=== PATIENT | female | born 1935 | race Caucasian/White ===

== ENCOUNTER 2016-08-10 11:46 | Inpatient (IN) | payer OTHER, MEDICARE ==
[2016-08-10] VITALS (7 sets, daily range): BP systolic 110–139; BP diastolic 50–74; PULSE 72–95; RESP 18–23; TEMP 97.8–98; O2SAT 91–94
[~2016-08-10] VITALS: Ht 152.4 cm; Wt 83.5 kg
[~2016-08-10 11:46] MED LIST: ADVAI500I INH; ALEN70TA39 PO; ASPI325T PO; BUME2TAB PO; CITA20TA4 PO; CLOP75 PO; DUONI NEB; FAMO20TA2 PO; HYDR-3535 PO; IPRAAER INH; LORA-392 PO; LOSA25 PO; METF500 PO; METO25 PO; PRAV80 PO; ROPI1TAB72 PO; TEMA15CA PO
--- NOTE | 2016-08-10 11:57 | PD ---
HPI Chief Complaint: Weakness Time Seen by Provider: 11:57 Travel History International Travel<30 days: No Contact w/Intl Traveler<30days: No Traveled to known affect area: No History of Present Illness HPI 81-year-old female with history of diabetes requiring insulin, and CHF , presents the emergency department with generalized weakness, increased lower extremity edema and pain, and increased shortness of breath. Patient states her glucometer broke several weeks ago and she has not been taking her insulin for approximately 2 weeks. Patient denies fever or chills but has weeping from her skin of both lower extremities since yesterday. The left lower extremity is somewhat erythematous and warm today. Patient states decreased urine output and overall weakness and exertional dyspnea. Patient denies nausea, vomiting, or diarrhea. She denies urinary symptoms. Patient is on Lasix but cannot remember her dose. She has no known drug allergies. PFSH Past Medical History Arthritis: Yes Asthma: No Autoimmune Disease: No Anxiety: Yes Depression: Yes Heart Rhythm Problems: No Cancer: No Cardiac Catheterization: Yes Cardiovascular Problems: Yes (CHF, CABG) High Cholesterol: No Chemotherapy: No Chest Pain: Yes Congestive Heart Failure: Yes COPD: Yes Cerebrovascular Accident: No Coronary Artery Disease: Yes Diabetes: Yes Diminished Hearing: No Endocrine: Yes Gastrointestinal Disorders: Yes (CONSTIPATION) GERD: No Genitourinary: No Headaches: No Hepatitis: No Hiatal Hernia: No Hypertension: Yes Immune Disorder: No Implanted Vascular Access Dvce: No Kidney Stones: No Musculoskeletal: Yes (OSTEOPOROSIS, ARTHRITIS) Neurologic: Yes (NEUROPATHY FEET) Psychiatric: Yes (ANXIETY) Reproductive: No Respiratory: Yes (COPD, SLEEP APNEA/ NO CPAP) Migraines: No Radiation Therapy: No Renal Failure: No Seizures: No Sickle Cell Disease: No Sleep Apnea: Yes Thyroid Disease: No Ulcer: No Past Surgical History Abdominal Surgery: Yes (APPY) AICD: No Appendectomy: Yes Arteriovenous Shunt: No Cardiac Surgery: Yes (CABG (3)) Coronary Artery Bypass Graft: Yes (X3 IN 2013) Coronary Stent: Yes Ear Surgery: No Endocrine Surgery: No Eye Surgery: No Genitourinary Surgery: No Gynecologic Surgery: Yes (TAHBSO) Hysterectomy: Yes Insulin Pump: No Joint Replacement: No Neurologic Surgery: No Oral Surgery: Yes (T&A) Pacemaker: No Thoracic Surgery: No Tonsillectomy: Yes Other Surgery: Yes Social History Alcohol Use: No Tobacco Use: Yes (1 PPD) Substance Use: No Allergies-Medications (Allergen,Severity, Reaction): Coded Allergies: No Known Allergies (Verified , 10/30/15) Reported Meds & Prescriptions Reported Meds & Active Scripts Active Reported Temazepam 15 Mg Cap 15 Mg PO HS PRN Requip (Ropinirole) 1 Mg Tab 1 Mg PO TID Pravastatin 80 Mg Tab 80 Mg PO HS Metoprolol Tartrate 25 Mg Tab 25 Mg PO DAILY Metformin (Metformin HCl) 500 Mg Tab 500 Mg PO DAILY With a meal Losartan (Losartan Potassium) 25 Mg Tab 25 Mg PO DAILY Lorazepam 0.5 Mg Tab 0.5 Mg PO BID PRN Lortab (Hydrocodone-Acetaminophen) 10-325 Mg Tab 1 Tab PO 2-3 TIMES A DAY PRN Combivent Respimat Inh (Ipratropium-Albuterol Inh) 20-100 Longterm/Act Aero 1 Puff INH QID Celexa (Citalopram Hydrobromide) 20 Mg Tab 20 Mg PO DAILY Bumex (Bumetanide) 2 Mg Tab 2 Mg PO BID Aspirin 325 Mg Tab 325 Mg PO DAILY Fosamax (Alendronate Sodium) 70 Mg Tab 70 Mg PO WEEKLY Saturdays Duoneb (Ipratropium-Albuterol Neb) 0.5-2.5 Mg/3 Ml Neb 1 Ampule NEB QID Advair Diskus Inh (Fluticasone-Salmeterol Inh) 500-50 Mcg/Blist Aer 1 Puff INH BID Rinse mouth after use. Review of Systems Except as stated in HPI: all other systems reviewed are Neg General / Constitutional: No: Fever, Chills Eyes: No: Visual changes HENT: Positive: Lightheadedness, No: Headaches, Sore Throat, Rhinitis, Rhinorrhea, Congestion, Nosebleed, Neck Stiffness, Neck Pain, Ear Discharge, Earache Cardiovascular: No: Chest Pain or Discomfort, Palpitations, Irregular Rhythm, Tachycardia Respiratory: Positive: Shortness of Breath (with exertion.), No: Cough, Wheezing, Sneezing, Orthopnea, Hemoptysis, Stridor, Night Sweats, Pleuritic Pain Gastrointestinal: No: Nausea, Vomiting, Diarrhea, Abdominal Pain Genitourinary: Positive: Decreased Urinary Output, No: Urgency, Frequency, Dysuria Musculoskeletal: Positive: Edema (see history present illness), Pain Skin: Positive Lesions (see history of present illness), No Rash Neurologic: No: Weakness Psychiatric: No: Depression Endocrine: No: Polydipsia Hematologic/Lymphatic: No: Easy Bruising Physical Exam Narrative GENERAL: Patient appears in mild distress. SKIN: Warm and dry. Normal color. Decreased turgor with tenting noted. Lower extremities have tense 2+ pitting edema bilaterally to the knees. Patient has superficial blistering and skin breakdown to both shins. Left lower leg has increased warmth and erythema with tenderness present. HEAD: Atraumatic. Normocephalic. EYES: Pupils equal and round. No scleral icterus. No injection or drainage. ENT: No nasal bleeding or discharge. Mucous membranes pink and very dry. Pharynx is normal. Airway is patent. NECK: Trachea midline. No JVD. CARDIOVASCULAR: Regular rate and rhythm. No murmurs appreciated. RESPIRATORY: No accessory muscle use. No wheezes crackles rales or rhonchi to auscultation. Breath sounds equal bilaterally. GASTROINTESTINAL: Abdomen soft, non-tender, nondistended. Hepatic and splenic margins not palpable. MUSCULOSKELETAL: Extremities without clubbing, cyanosis, 2+ tender pitting edema bilaterally to lower extremities to the knee. No obvious deformities. NEUROLOGICAL: Awake and alert. No obvious cranial nerve deficits. Motor grossly within normal limits. Five out of 5 muscle strength in the arms and legs. Normal speech. Patient is able to ambulate. PSYCHIATRIC: Appropriate mood and affect; insight and judgment normal. Data Data Last Documented VS Vital Signs Date Time Temp Pulse Resp B/P Pulse Ox O2 Delivery O2 Flow Rate FiO2 08/10/16 12:43 94 Nasal Cannula 4 08/10/16 11:50 97.8 Orders Complete Blood Count With Diff (08/10/16 12:15) Comprehensive Metabolic Panel (08/10/16 12:15) B-Type Natriuretic Peptide (08/10/16 12:15) D-Dimer (08/10/16 12:15) Act Partial Throm Time (Ptt) (08/10/16 12:15) Prothrombin Time / Inr (Pt) (08/10/16 12:15) Magnesium (Mg) (08/10/16 12:15) Ckmb (Isoenzyme) Profile (08/10/16 12:15) Troponin I (08/10/16 12:15) Urinalysis - C+S If Indicated (08/10/16 12:15) Iv Access Insert/Monitor (08/10/16 12:15) Electrocardiogram (08/10/16 12:15) Ecg Monitoring (08/10/16 12:15) Oximetry (08/10/16 12:15) Oxygen Administration (08/10/16 12:15) Chest, Single Ap (08/10/16 12:15) Sodium Chloride 0.9% Flush (Ns Flush) (08/10/16 12:15) Furosemide Inj (Lasix Inj) (08/10/16 12:15) Blood Glucose (08/10/16 12:15) Blood Glucose (08/10/16 12:45) Insulin Human Regular Inj (Novolin R Inj (08/10/16 12:15) Sodium Chlorid 0.9% 500 Ml Inj (Ns 500 M (08/10/16 12:15) Acetamin-Hydrocod 325-5 Mg ([place] 5-325 (08/10/16 13:00) Urine Culture (08/10/16 12:25) Lactic Acid (08/10/16 13:26) Blood Culture (08/10/16 13:26) Us Leg Venous Doppler Bilat (08/10/16 13:26) Vancomycin Inj (Vancomycin Inj) (08/10/16 13:37) Piperacil-Tazo 4.5 Gm Premix (Zosyn 4.5 (08/10/16 13:37) Heparin Infusion NOMAN.Q1H (08/10/16 13:43) Heparin Inj (Heparin Inj) (08/10/16 13:45) Heparin Inj (Heparin Inj) (08/10/16 19:45) Heparin Inj (Heparin Inj) (08/10/16 19:45) Heparin-D5w Inj (Heparin-D5w Inj) (08/10/16 13:45) Cbc No Diff, Includes Plts (08/13/16 06:00) Act Partial Throm Time (Ptt) (08/10/16 20:43) Occult Blood (Hemoccult) Stool (08/10/16 13:43) Morphine Inj (Morphine Inj) (08/10/16 13:45) Sodium Chlor 0.9% 1000 Ml Inj (Ns 1000 M (08/10/16 13:45) Admit Order (Ed Use Only) (08/10/16 14:01) Labs Laboratory Tests Test 08/10/16 12:25 White Blood Count 9.3 TH/MM3 Red Blood Count 5.50 MIL/MM3 Hemoglobin 16.3 GM/DL Hematocrit 50.5 % Mean Corpuscular Volume 91.8 FL Mean Corpuscular Hemoglobin 29.6 PG Mean Corpuscular Hemoglobin 32.3 % Concent Red Cell Distribution Width 17.4 % Platelet Count 204 TH/MM3 Mean Platelet Volume 9.5 FL Neutrophils (%) (Auto) 77.8 % Lymphocytes (%) (Auto) 12.1 % Monocytes (%) (Auto) 8.1 % Eosinophils (%) (Auto) 1.6 % Basophils (%) (Auto) 0.4 % Neutrophils # (Auto) 7.3 TH/MM3 Lymphocytes # (Auto) 1.1 TH/MM3 Monocytes # (Auto) 0.8 TH/MM3 Eosinophils # (Auto) 0.2 TH/MM3 Basophils # (Auto) 0.0 TH/MM3 CBC Comment DIFF FINAL Differential Comment Prothrombin Time 12.4 SEC Prothromb Time International 1.1 RATIO Ratio Activated Partial 28.6 SEC Thromboplast Time D-Dimer Quantitative (PE/DVT) 1.24 MG/L FEU Urine Color LIGHT-YELLOW Urine Turbidity CLEAR Urine pH 5.0 Urine Specific [place] 1.006 Urine Protein NEG mg/dL Urine Glucose (UA) 300 mg/dL Urine Ketones NEG mg/dL Urine Occult Blood NEG Urine Nitrite NEG Urine Bilirubin NEG Urine Urobilinogen LESS THAN 2.0 MG/DL Urine Leukocyte Esterase MOD Urine RBC 2 /hpf Urine WBC 8 /hpf Urine Squamous Epithelial 2 /hpf Cells Urine Bacteria MOD /hpf Urine Hyaline Casts 6 /lpf Microscopic Urinalysis Comment CULTURE INDICATED Sodium Level 133 MEQ/L Potassium Level 4.0 MEQ/L Chloride Level 93 MEQ/L Carbon Dioxide Level 31.1 MEQ/L Anion Gap 9 MEQ/L Blood Urea Nitrogen 55 MG/DL Creatinine 2.20 MG/DL Estimat Glomerular Filtration 21 ML/MIN Rate Random Glucose 402 MG/DL Calcium Level 9.2 MG/DL Magnesium Level 1.7 MG/DL Total Bilirubin 0.5 MG/DL Aspartate Amino Transf 15 U/L (AST/SGOT) Alanine Aminotransferase 34 U/L (ALT/SGPT) Alkaline Phosphatase 271 U/L Total Creatine Kinase 87 U/L Troponin I 0.66 NG/ML B-Type Natriuretic Peptide 874 PG/ML Total Protein 8.4 GM/DL Albumin 3.1 GM/DL MDM Medical Decision Making Medical Screen Exam Complete: Yes Emergency Medical Condition: Yes Differential Diagnosis Hyperglycemia. Dehydration. CHF. Pedal Edema. Electrolyte imbalance. Cellulitis. DVT. Narrative Course Patient is medically stable at time of exam. Labs ordered including CBC, CMP, PT PTT and INR, proBNP, d-dimer, magnesium, troponin, and CK-MB. Urinalysis is ordered as well. IV access is obtained patient is given 80 mg IV Lasix. She is given a 500 mL normal saline bolus, she is given 10 units insulin IV. EKG and chest x-ray are ordered. Patient is placed on 3 L nasal cannula as her room air sat is 88%. Patient is known to need oxygen at home. CBC shows no significant leukocytosis, however the patient has increased hemoglobin of 16.3 and a hematocrit of 50.8. The patient's BNP is 874. D-dimer is elevated at 1.24. Urinalysis is suggestive of urinary tract infection. Blood cultures 2, lactic acid, lower extremities ultrasound, and CTA is ordered. Patient is started on Zosyn and Vanco IV. Patient is discussed with Dr. Ashley who sees the patient as well. Patient CMP shows sodium 133. Chloride 93. BUN 55. Creatinine of 2.20. Alkaline phosphatase is elevated at 271. Troponin is elevated 0.66. Patient is started on heparin per Dr. Ashley. CTAs canceled secondary to patient's creatinine. Ultrasound is still pending. 1345 hrs. call was placed to the hospitalist for admission. 1400 hrs. patient was discussed with Dr. Dickinson who agrees to admit the patient. Diagnosis Primary Impression: Troponin level elevated Additional Impressions: Hyperglycemia CHF (congestive heart failure) Qualified Code: I50.9 - Acute on chronic congestive heart failure, unspecified congestive heart failure type Cellulitis Qualified Code: L03.119 - Cellulitis of lower extremity, unspecified laterality Pedal edema Renal insufficiency Admitting Information Admitting Physician Requests: Admit Condition: Stable Tyrone Jones Aug 10, 2016 11:57
[2016-08-10] MEDS ORDERED: SODIUM CHLORID 0.9% 500 ML INJ 500 ML IV ONE (12:15)
[2016-08-10] MEDS ORDERED: SODIUM CHLORIDE 0.9% FLUSH 5 ML FLUSH IVF PRN (12:15)
[2016-08-10] MEDS ORDERED: FUROSEMIDE 100 MG/10 ML VIAL IVP ONE (12:15)
[2016-08-10] MEDS ORDERED: INSULIN HUMAN REGULAR 1,000 UNITS/10 ML VIAL IVP ONE (12:15)
[2016-08-10 12:45] LABS: AUTOMATED NEUTROPHIL # 7.3 TH/MM3 (1.8-7.7); BASOPHIL % 0.4 % (0.0-2.0); EOSINOPHIL # 0.2 TH/MM3 (0-0.4); EOSINOPHIL % 1.6 % (0.0-4.0); HEMATOCRIT 50.5 % (35.0-46.0); HEMO FLAGS DIFF FINAL; LYMPH % 12.1 % (9.0-44.0); LYMPHOCYTE # 1.1 TH/MM3 (1.0-4.8); MEAN CELL VOLUME 91.8 FL (80.0-100.0); MEAN CORPUSCULAR HEMOGLOBIN 29.6 PG (27.0-34.0); MEAN CORPUSCULAR HGB CONC 32.3 % (32.0-36.0); MONO % 8.1 % (0.0-8.0); NEUT % 77.8 % (16.0-70.0); PLATELET COUNT 204 TH/MM3 (150-450); RED CELL DISTRIBUTION WIDTH 17.4 % (11.6-17.2); WHITE BLOOD COUNT 9.3 TH/MM3 (4.0-11.0)
[2016-08-10 12:56] LABS: APTT (PATIENT) 28.6 SEC (24.3-30.1); INTERNATIONAL NORMALIZED RATIO 1.1 RATIO; PROTHROMBIN TIME - PATIENT 12.4 SEC (9.8-11.6)
[2016-08-10 12:58] LABS: BACTERIA, URINE MOD /hpf; BLOOD, URINE NEG (NEG); COMMENT (UR) CULTURE INDICATED; CULTURE IF INDICATED CULTURE INDICATED; GLUCOSE,URINE 300 mg/dL (NEG); HYALINE CAST, URINE 6 /lpf (RARE); KETONE, URINE NEG (NEG); NITRITE,URINE NEG (NEG); SQUAMOUS EPITHELIAL CELL URINE 2 /hpf (0-5); URINE COLOR LIGHT-YELLOW (YELLW/STRAW)
[2016-08-10] MEDS ORDERED: ACETAMINOPHEN/HYDROcodone 325 MG/5 MG TAB PO ONE (13:00)
[2016-08-10] MEDS ORDERED: CELE20TA PO (13:09)
[2016-08-10] MEDS ORDERED: LORA-373 PO (13:09)
[2016-08-10] MEDS ORDERED: ROPI1TAB72 PO (13:09)
[2016-08-10] MEDS ORDERED: METF500T PO (13:09)
[2016-08-10] MEDS ORDERED: HYDR-3535 PO (13:09)
[2016-08-10] MEDS ORDERED: FOSA70TA PO (13:09)
[2016-08-10] MEDS ORDERED: ASPI325T PO (13:09)
[2016-08-10] MEDS ORDERED: LOSA25TA PO (13:09)
[2016-08-10] MEDS ORDERED: IPRASOL NEB (13:09)
[2016-08-10] MEDS ORDERED: TEMA15CA PO (13:09)
[2016-08-10] MEDS ORDERED: BUME1TAB28 PO (13:09)
[2016-08-10] MEDS ORDERED: METO25TA3 PO (13:09)
[2016-08-10] MEDS ORDERED: PRAV80TA2 PO (13:09)
[2016-08-10] MEDS ORDERED: IPRAAER INH (13:09)
[2016-08-10] MEDS ORDERED: ADVA500A INH (13:09)
[2016-08-10 13:25] LABS: ALKALINE PHOSPHATASE 271 U/L (45-117); ALT (GPT) 34 U/L (10-53); ANION GAP 9 MEQ/L (5-15); AST (GOT) 15 U/L (15-37); BICARBONATE 31.1 MEQ/L (21.0-32.0); BLOOD UREA NITROGEN 55 MG/DL (7-18); CHLORIDE 93 MEQ/L (98-107); GLOMERULAR FILTRATION RATE 21 ML/MIN (>89); MAGNESIUM 1.7 MG/DL (1.5-2.5); SODIUM (NA) 133 MEQ/L (136-145); TOTAL BILIRUBIN ADULT 0.5 MG/DL (0.2-1.0)
[2016-08-10 13:33] LABS: CREATINE KINASE 87 U/L (26-192)
[2016-08-10] MEDS ORDERED: PIPERACIL-TAZO 4.5 GM PREMIX 100 ML IV STA (13:37)
[2016-08-10] MEDS ORDERED: VANCOMYCIN INJ 1,000 MG in SODIUM CHLOR 0.9% 250 ML INJ 250 ML IV STA (13:37)
--- NOTE | 2016-08-10 13:42 | PD ---
Data Data Last Documented VS Vital Signs Date Time Temp Pulse Resp B/P Pulse Ox O2 Delivery O2 Flow Rate FiO2 08/10/16 12:43 94 Nasal Cannula 4 08/10/16 11:50 97.8 Orders Complete Blood Count With Diff (08/10/16 12:15) Comprehensive Metabolic Panel (08/10/16 12:15) B-Type Natriuretic Peptide (08/10/16 12:15) D-Dimer (08/10/16 12:15) Act Partial Throm Time (Ptt) (08/10/16 12:15) Prothrombin Time / Inr (Pt) (08/10/16 12:15) Magnesium (Mg) (08/10/16 12:15) Ckmb (Isoenzyme) Profile (08/10/16 12:15) Troponin I (08/10/16 12:15) Urinalysis - C+S If Indicated (08/10/16 12:15) Iv Access Insert/Monitor (08/10/16 12:15) Electrocardiogram (08/10/16 12:15) Ecg Monitoring (08/10/16 12:15) Oximetry (08/10/16 12:15) Oxygen Administration (08/10/16 12:15) Chest, Single Ap (08/10/16 12:15) Sodium Chloride 0.9% Flush (Ns Flush) (08/10/16 12:15) Furosemide Inj (Lasix Inj) (08/10/16 12:15) Blood Glucose (08/10/16 12:15) Blood Glucose (08/10/16 12:45) Insulin Human Regular Inj (Novolin R Inj (08/10/16 12:15) Sodium Chlorid 0.9% 500 Ml Inj (Ns 500 M (08/10/16 12:15) Acetamin-Hydrocod 325-5 Mg ([place] 5-325 (08/10/16 13:00) Urine Culture (08/10/16 12:25) Lactic Acid (08/10/16 13:26) Blood Culture (08/10/16 13:26) Us Leg Venous Doppler Bilat (08/10/16 13:26) Vancomycin Inj (Vancomycin Inj) (08/10/16 13:37) Piperacil-Tazo 4.5 Gm Premix (Zosyn 4.5 (08/10/16 13:37) Heparin Infusion NOMAN.Q1H (08/10/16 13:43) Heparin Inj (Heparin Inj) (08/10/16 13:45) Heparin Inj (Heparin Inj) (08/10/16 19:45) Heparin Inj (Heparin Inj) (08/10/16 19:45) Heparin-D5w Inj (Heparin-D5w Inj) (08/10/16 13:45) Cbc No Diff, Includes Plts (08/13/16 06:00) Act Partial Throm Time (Ptt) (08/10/16 20:43) Occult Blood (Hemoccult) Stool (08/10/16 13:43) Morphine Inj (Morphine Inj) (08/10/16 13:45) Sodium Chlor 0.9% 1000 Ml Inj (Ns 1000 M (08/10/16 13:45) Admit Order (Ed Use Only) (08/10/16 14:01) Labs Laboratory Tests Test 08/10/16 08/10/16 12:25 13:39 White Blood Count 9.3 TH/MM3 Red Blood Count 5.50 MIL/MM3 Hemoglobin 16.3 GM/DL Hematocrit 50.5 % Mean Corpuscular Volume 91.8 FL Mean Corpuscular Hemoglobin 29.6 PG Mean Corpuscular Hemoglobin 32.3 % Concent Red Cell Distribution Width 17.4 % Platelet Count 204 TH/MM3 Mean Platelet Volume 9.5 FL Neutrophils (%) (Auto) 77.8 % Lymphocytes (%) (Auto) 12.1 % Monocytes (%) (Auto) 8.1 % Eosinophils (%) (Auto) 1.6 % Basophils (%) (Auto) 0.4 % Neutrophils # (Auto) 7.3 TH/MM3 Lymphocytes # (Auto) 1.1 TH/MM3 Monocytes # (Auto) 0.8 TH/MM3 Eosinophils # (Auto) 0.2 TH/MM3 Basophils # (Auto) 0.0 TH/MM3 CBC Comment DIFF FINAL Differential Comment Prothrombin Time 12.4 SEC Prothromb Time International 1.1 RATIO Ratio Activated Partial 28.6 SEC Thromboplast Time D-Dimer Quantitative (PE/DVT) 1.24 MG/L FEU Urine Color LIGHT-YELLOW Urine Turbidity CLEAR Urine pH 5.0 Urine Specific [place] 1.006 Urine Protein NEG mg/dL Urine Glucose (UA) 300 mg/dL Urine Ketones NEG mg/dL Urine Occult Blood NEG Urine Nitrite NEG Urine Bilirubin NEG Urine Urobilinogen LESS THAN 2.0 MG/DL Urine Leukocyte Esterase MOD Urine RBC 2 /hpf Urine WBC 8 /hpf Urine Squamous Epithelial 2 /hpf Cells Urine Bacteria MOD /hpf Urine Hyaline Casts 6 /lpf Microscopic Urinalysis Comment CULTURE INDICATED Sodium Level 133 MEQ/L Potassium Level 4.0 MEQ/L Chloride Level 93 MEQ/L Carbon Dioxide Level 31.1 MEQ/L Anion Gap 9 MEQ/L Blood Urea Nitrogen 55 MG/DL Creatinine 2.20 MG/DL Estimat Glomerular Filtration 21 ML/MIN Rate Random Glucose 402 MG/DL Calcium Level 9.2 MG/DL Magnesium Level 1.7 MG/DL Total Bilirubin 0.5 MG/DL Aspartate Amino Transf 15 U/L (AST/SGOT) Alanine Aminotransferase 34 U/L (ALT/SGPT) Alkaline Phosphatase 271 U/L Total Creatine Kinase 87 U/L Troponin I 0.66 NG/ML B-Type Natriuretic Peptide 874 PG/ML Total Protein 8.4 GM/DL Albumin 3.1 GM/DL Lactic Acid Level 2.3 mmol/L MDM Supervised Visit with IRISH: Yes Narrative Course Patient seen and examined by me in addition to IRISH. I have examined confirmed the physical exam findings and the diagnosis and discussed with admitting provider Dr. Rivero. Patient is 81 year old female presents to the ER with complaints of bilateral LE pain. Patient has elevated CR, Elevated TN and cellulitis of the lower extremities. D-Dimer positive as well. Initially had plans for CT PE and US DVT. Former is placed on hold for elevated Cr. Discussed with patient heparinization and she is agreeable. Does have history of hemorrhoids and intermittent blood streaked stool. Risk of GI bleeding does not outweight benefits of heparinization. Heparin drip ordered. Dr. Rivero arrives and would like to hold heparin for now citing he thinks it of little clinical significance at the time. After discussing our rationale he opts to discontinue. Dr. Rivero will admit to [facility]. Admitting Information Admitting Physician Requests: Admit Condition: Stable Brian Nails MD Aug 10, 2016 13:42
--- NOTE | 2016-08-10 13:44 | RADRPT ---
EXAM DATE/TIME: 08/10/2016 12:32 [facility] COMPARISON: CHEST SINGLE AP, March 20, 2016, 12:49. INDICATIONS : Shortness of breath and generalized weakness. MEDICAL HISTORY : None. SURGICAL HISTORY : CABG. ENCOUNTER: Initial ACUITY: 3 days PAIN SCORE: 0/10 LOCATION: chest FINDINGS: Portable AP view of the chest demonstrates a normal-sized cardiac silhouette with calcification aorta in this patient post median sternotomy. There is interstitial prominence with subtle linear opacity in the left lower lung zone. No effusion or pneumothorax is seen. Bones demonstrate no acute finding. CONCLUSION: No acute finding is identified. The linear opacity in the left lower lung zone may represent atelecta sis. Sven Espinosa MD on August 10, 2016 at 13:42 Board Certified Radiologist. This report was verified electronically.
[2016-08-10] MEDS ORDERED: MORPHINE SULFATE 4 MG/ML INJ IV PUSH ONE (13:45)
[2016-08-10] MEDS ORDERED: SODIUM CHLOR 0.9% 1000 ML INJ 1,000 ML IV SCH (13:45)
[2016-08-10] MEDS ORDERED: HEPARIN SODIUM - IV 10,000 UNITS/10 ML VIAL IV ONE (13:45)
[2016-08-10] MEDS ORDERED: HEPARIN-D5W INJ 250 ML IV SCH (13:45)
--- NOTE | 2016-08-10 14:03 | HHI.HP ---
[facility] Betty Smith MD Admission Diagnosis Diagnoses: (1) Urinary tract infection (2) Troponin level elevated (3) CKD (chronic kidney disease) stage 3, GFR 30-59 ml/min (4) Cellulitis (5) Hyperglycemia (6) Acute renal failure superimposed on stage 3 chronic kidney disease Travel History International Travel<30 Days: No Contact w/Intl Traveler <30 Da: No Traveled to Known Affected Are: No History of Present Illness 81-year-old female with past medical history of hypertension, diabetes, CAD status post CABG, COPD, CKD was brought to the ED for evaluation of worsening generalized weakness increased shortness of breath and bilateral lower extremity edema and pain 1 day. Patient states, she noticed that her legs were leaking today. Patient was found on admission to have elevated blood glucose, and states over the past several days to weeks she has been checking her glucose and giving herself insulin due to a malfunctioning glucometer. Although patient has elevated troponin I she denies any chest pain. She also reports decreased urine output however denies any dysuria despite abnormal UA. She denies currently any GI bleed however has a history of hemorrhoids and states occasionally she does have some streaking of blood in her stool. Review of Systems Other Other 12 systems reviewed and are negative except for the ones mentioned in the history of present illness Past Family Social History Past Medical History CAD diabetes mellitus hypertension COPD-on home oxygen Past Surgical History CABG Cholecystectomy Hysterectomy Reported Medications Temazepam 15 Mg Cap 15 Mg PO HS PRN Requip (Ropinirole) 1 Mg Tab 1 Mg PO TID Pravastatin 80 Mg Tab 80 Mg PO HS Metoprolol Tartrate 25 Mg Tab 25 Mg PO DAILY Metformin (Metformin HCl) 500 Mg Tab 500 Mg PO DAILY With a meal Losartan (Losartan Potassium) 25 Mg Tab 25 Mg PO DAILY Lorazepam 0.5 Mg Tab 0.5 Mg PO BID PRN Lortab (Hydrocodone-Acetaminophen) 10-325 Mg Tab 1 Tab PO 2-3 TIMES A DAY PRN Combivent Respimat Inh (Ipratropium-Albuterol Inh) 20-100 Custodial/Act Aero 1 Puff INH QID Celexa (Citalopram Hydrobromide) 20 Mg Tab 20 Mg PO DAILY Bumex (Bumetanide) 2 Mg Tab 2 Mg PO BID Aspirin 325 Mg Tab 325 Mg PO DAILY Fosamax (Alendronate Sodium) 70 Mg Tab 70 Mg PO WEEKLY Saturdays Duoneb (Ipratropium-Albuterol Neb) 0.5-2.5 Mg/3 Ml Neb 1 Ampule NEB QID Advair Diskus Inh (Fluticasone-Salmeterol Inh) 500-50 Mcg/Blist Aer 1 Puff INH BID Rinse mouth after use. Allergies: Coded Allergies: No Known Allergies (Verified , 10/30/15) Social History Alcohol Use: No Tobacco Use: Yes (1 PPD) Substance Use: No Physical Exam Vital Signs Vital Signs Date Time Temp Pulse Resp B/P Pulse Ox O2 Delivery O2 Flow Rate FiO2 08/10/16 12:43 94 Nasal Cannula 4 08/10/16 12:43 94 Nasal Cannula 4 08/10/16 12:02 88 Room Air 08/10/16 11:50 97.8 Physical Exam GENERAL: This is a well-nourished, well-developed patient, in no apparent distress. SKIN: Erythema to bilateral lower extremities HEAD: Atraumatic. Normocephalic. No temporal or scalp tenderness. EYES: Pupils equal round and reactive. Extraocular motions intact. No scleral icterus. No injection or drainage. ENT: Nose without bleeding, purulent drainage or septal hematoma. Throat without erythema, tonsillar hypertrophy or exudate. Uvula midline. Airway patent. NECK: Trachea midline. No JVD or lymphadenopathy. Supple, nontender, no meningeal signs. CARDIOVASCULAR: Regular rate and rhythm without murmurs, gallops, or rubs. RESPIRATORY: Clear to auscultation. Breath sounds equal bilaterally. No wheezes , rales, or rhonchi. GASTROINTESTINAL: Abdomen soft, non-tender, nondistended. No hepato-splenomegaly , or palpable masses. No guarding. MUSCULOSKELETAL: Extremities without clubbing, cyanosis; +1 edema BLE. No joint tenderness, effusion, or edema noted. No calf tenderness. Negative Homans sign bilaterally. NEUROLOGICAL: Awake and alert. Cranial nerves II through XII intact. Motor and sensory grossly within normal limits. Five out of 5 muscle strength in all muscle groups. Normal speech. Laboratory Laboratory Tests Test 08/10/16 12:25 White Blood Count 9.3 Red Blood Count 5.50 Hemoglobin 16.3 Hematocrit 50.5 Mean Corpuscular Volume 91.8 Mean Corpuscular Hemoglobin 29.6 Mean Corpuscular Hemoglobin 32.3 Concent Red Cell Distribution Width 17.4 Platelet Count 204 Mean Platelet Volume 9.5 Neutrophils (%) (Auto) 77.8 Lymphocytes (%) (Auto) 12.1 Monocytes (%) (Auto) 8.1 Eosinophils (%) (Auto) 1.6 Basophils (%) (Auto) 0.4 Neutrophils # (Auto) 7.3 Lymphocytes # (Auto) 1.1 Monocytes # (Auto) 0.8 Eosinophils # (Auto) 0.2 Basophils # (Auto) 0.0 CBC Comment DIFF FINAL Differential Comment Prothrombin Time 12.4 Prothromb Time International 1.1 Ratio Activated Partial 28.6 Thromboplast Time D-Dimer Quantitative (PE/DVT) 1.24 Urine Color LIGHT-YELLOW Urine Turbidity CLEAR Urine pH 5.0 Urine Specific [place] 1.006 Urine Protein NEG Urine Glucose (UA) 300 Urine Ketones NEG Urine Occult Blood NEG Urine Nitrite NEG Urine Bilirubin NEG Urine Urobilinogen LESS THAN 2.0 Urine Leukocyte Esterase MOD Urine RBC 2 Urine WBC 8 Urine Squamous Epithelial 2 Cells Urine Bacteria MOD Urine Hyaline Casts 6 Microscopic Urinalysis Comment CULTURE INDICATED Sodium Level 133 Potassium Level 4.0 Chloride Level 93 Carbon Dioxide Level 31.1 Anion Gap 9 Blood Urea Nitrogen 55 Creatinine 2.20 Estimat Glomerular Filtration 21 Rate Random Glucose 402 Calcium Level 9.2 Magnesium Level 1.7 Total Bilirubin 0.5 Aspartate Amino Transf 15 (AST/SGOT) Alanine Aminotransferase 34 (ALT/SGPT) Alkaline Phosphatase 271 Total Creatine Kinase 87 Troponin I 0.66 B-Type Natriuretic Peptide 874 Total Protein 8.4 Albumin 3.1 Date/Time Procedure Status Source Growth 08/10/16 13:40 Aerobic Blood Culture Received Blood Peripheral Pending 08/10/16 13:40 Anaerobic Blood Culture Received Blood Peripheral Pending 08/10/16 12:25 Urine Culture Received Urine Clean Catch Pending Result Diagram: 08/10/16 1225 08/10/16 1225 Imaging Last Impressions Chest X-Ray 08/10/16 1215 Signed Impressions: Service Date/Time: Saturday, August 10, 2016 12:32 - CONCLUSION: No acute finding is identified. The linear opacity in the left lower lung zone may represent atelectasis. Sven Espinosa MD Assessment and Plan Problem List: (1) Diabetes mellitus type 2, uncontrolled ICD Code: E11.65 Status: Acute (2) Acute renal failure superimposed on stage 3 chronic kidney disease ICD Code: N17.9 Status: Acute (3) Hyperglycemia ICD Code: R73.9 Status: Acute (4) Urinary tract infection ICD Code: N39.0 Status: Acute (5) Cellulitis ICD Code: L03.90 Status: Acute (6) Elevated troponin I level ICD Code: R79.89 Status: Acute Assessment and Plan 81-year-old female with 1-Diabetes type 2 uncontrolled: Secondary to noncompliance; resume Lantus 35 units at bedtime, start medium sliding scale insulin with fingerstick blood glucose monitoring. Hold metformin. 2-Diastolic chronic CHF: 2-D echo 04/21/15 with EF 50-55%, current BNP 874 however chest x-ray no evidence of pulmonary edema; patient treated in ED with Lasix 80 mg IV 1 likely secondary to bilateral lower stomach edema. Resume Bumex. Check 2-D echo 3-Elevated troponin I: May be secondary to chronic kidney disease versus CHF, patient currently denying any chest pain. We'll rule out ACS per protocol with serial cardiac enzyme and EKG. Hold on starting heparin drip. If troponin I still elevated or presence of symptom of chest pain would consult cardiology for evaluation for left heart catheterization. Secondary to abnormal d-dimer, check VQ scan to rule out PE as CTA contraindicated due to was the renal function. 4-Bilateral lower edema: Patient with a history of CHF, check Doppler lower extremity to rule out DVT in the face of elevated d-dimer and treat accordingly. Status post Lasix 80 mg IV in ED, resume Bumex 5-Acute on chronic kidney stage III disease: Status post 500 cc NS bolus in ED, due to worsening lower stomach edema with run gentle IV fluid hydration .Check renal ultrasound and consider consultation from nephrology. Monitor BUN and creatinine 6-Bilateral lower extremities cellulitis: Status post Zosyn and vancomycin 1 in ED, continue Zosyn pending blood culture 7-UTI: Abnormal UA, status post Zosyn and vancomycin IV 1 in ED, continue Zosyn and follow urine culture 8-Lactic acidosis: Repeat lactic acid 9-Hypertension: Resume beta marie 10Hyperlipidemia: Resume statin 11-History of COPD: Chest x-ray noted and reviewed without any acute finding, DuoNeb when necessary and resume outpatient medications 12-RLS: Resume outpatient med 13-DVT prophylaxis: Heparin subcutaneous Code Status Full code Discussed Condition With Patient, family members at bedtime, ED physician Physician Certification 2 Midnight Certification Type: Admission for Inpatient Services Order for Inpatient Services The services are ordered in accordance with Medicare regulations or non- Medicare payer requirements, as applicable. In the case of services not specified as inpatient-only, they are appropriately provided as inpatient services in accordance with the 2-midnight benchmark. Estimated LOS (days): 2 days is the estimated time the patient will need to remain in the hospital, assuming treatment plan goals are met and no additional complications. Post-Hospital Plan: Not yet determined Problem Qualifiers (1) Cellulitis: Qualified Code: L03.119 - Cellulitis of lower extremity, unspecified laterality Tono Rivero MD Aug 10, 2016 14:03
[2016-08-10] MEDS ORDERED: NALOXONE HCL 0.4 MG/ML AMP IV PRN (14:15)
[2016-08-10] MEDS ORDERED: RESP: ALBUTEROL 2.5 MG/IPRATROPIUM 0.5 MG NEB (PRN) NEB (14:15)
[2016-08-10] MEDS ORDERED: SODIUM CHLORIDE 0.9% FLUSH 5 ML FLUSH FLUSH PRN (14:15)
[2016-08-10] MEDS ORDERED: GLUCAGON 1 MG/ML VIAL OTHER PRN (14:15)
[2016-08-10] MEDS ORDERED: DEXTROSE 50% IN WATER 50 ML VIAL(D50) IV PUSH PRN (14:15)
[2016-08-10] MEDS ORDERED: ACETAMINOPHEN 325 MG TAB PO PRN ×2 (14:15)
[2016-08-10] MEDS ORDERED: ONDANSETRON HCL 4 MG/2 ML VIAL IVP PRN (14:15)
[2016-08-10] MEDS ORDERED: NOVOLOGP2 SQ (14:37)
[2016-08-10] MEDS ORDERED: LANTUS2P SQ (14:37)
[2016-08-10] MEDS ORDERED: NITROGLYCERIN 0.4 MG SL 25 TABS/BTL SL PRN (16:15)
--- NOTE | 2016-08-10 17:26 | RADRPT ---
EXAM DATE/TIME: 08/10/2016 16:04 [facility] COMPARISON: No previous studies available for comparison. INDICATIONS : Leg swelling. MEDICAL HISTORY : Congestive heart failure. Myocardial infarction. Chronic obstructive pulmonary disease. Coronary sheila ry disease. Osteoporosis. Emphysema. Sleep apnea. Hypertension. Arthritis. Diabetes. C.diff. Depressi on. Anxiety. SURGICAL HISTORY : Tonsillectomy.Appendectomy. Hysterectomy.CABG. Coronary artery stent. ENCOUNTER: Subsequent ACUITY: 1 day PAIN SCORE: 10/10 LOCATION: Bilateral legs. TECHNIQUE: Venous ultrasound of the left and right leg was performed from the inguinal ligament to the proximal calf. Real-time, color Doppler and spectral tracing, compression and augmentation techniques were us ed. FINDINGS: RIGHT LEG: There is normal compressibility of the deep venous system from the inguinal region to the proximal ca lf. No echogenic clot is seen in the lumen of the common femoral, femoral, popliteal, and posterior tibial veins. There is a normal response of the venous system to proximal and distal augmentation an d respiration. LEFT LEG: There is normal compressibility of the deep venous system from the inguinal region to the proximal ca lf. No echogenic clot is seen in the lumen of the common femoral, femoral, popliteal, and posterior tibial veins. There is a normal response of the venous system to proximal and distal augmentation an d respiration. CONCLUSION: No DVT. Sven Pichardo MD on August 10, 2016 at 17:24 Board Certified Radiologist. This report was verified electronically.
--- NOTE | 2016-08-10 17:38 | RADRPT ---
EXAM DATE/TIME: 08/10/2016 16:04 [facility] COMPARISON: No previous studies available for comparison. INDICATIONS : Increased labs. MEDICAL HISTORY : Congestive heart failure. Myocardial infarction. Chronic obstructive pulmonary disease. Coronary sheila ry disease. Osteoporosis. Emphysema. Sleep apnea. Hypertension. Arthritis. Diabetes. C.diff. Depress ion. Anxiety SURGICAL HISTORY : Tonsillectomy. Appendectomy. Hysterectomy. CABG. Coronary artery stent. ENCOUNTER: Initial ACUITY: 1 day PAIN SCORE: 0/10 LOCATION: Bilateral flank MEASUREMENTS: RIGHT KIDNEY: 8.9 x 5.2 x 4.8 cm LEFT KIDNEY: 10.9 x 4.7 x 4.8 cm FINDINGS: RIGHT KIDNEY: The right kidney appears smaller than the left kidney. There are cortical cysts seen on the right si de measuring up to 3 cm at the mid right kidney. No hydronephrosis is identified. LEFT KIDNEY: The left kidney appears normal in size. Cysts aer seen at the lower pole measuring up to 3.1 cm. BLADDER: There is an echogenic area seen in the posterior-superior aspect of the bladder measuring 3.4 x 1.9 x 1.9 cm. On some of the images it appears potentially within the bladder. A prominent impression on the posterior aspect of the bladder could have a similar appearance. CONCLUSION: 1. 3.4 cm echogenic area seen of the posterior aspect of the bladder. It is difficult to determine if this represents a bladder mass or an impression on the bladder. This could be further evaluated w ith Urology consultation. Further imaging could be performed with a CT examination. 2. Benign cystic area seen at the kidneys bilaterally. Sven Pichardo MD on August 10, 2016 at 17:26 Board Certified Radiologist. This report was verified electronically.
--- NOTE | 2016-08-10 18:33 | RADRPT ---
EXAM DATE/TIME: 08/10/2016 17:37 [facility] COMPARISON: CHEST SINGLE AP, August 10, 2016, 12:32. INDICATIONS : Embolus. Exertional dyspnea. Lower extremity edema. Generalized weakness. DOSE: 8.5 mCi Tc99m MAA IV 0.92 mCi Tc99m DTPA aerosol MEDICAL HISTORY : Congestive hearrt failure. Myocardial infarction. Chronic obstructive pulmonary disease. Diabetes rhean litus and hypertension. SURGICAL HISTORY : CABG Coronary artery stent. Hysterectomy. Appendectomy, tonsilectomy and ORIF of left wrist and shou lder. ENCOUNTER: Initial ACUITY: 2 days PAIN SCALE: 4/10 LOCATION: upper chest TECHNIQUE: Following five minutes of tidal breathing of DTPA aerosol, planar images of the lungs were performed in eight projections. The patient was then injected with MAA, and eight-view perfusion scan was perf ormed. FINDINGS: There is a heterogeneous pattern of aerosol delivery to the periphery of both lungs. No focal ventil atory defects are seen. The perfusion lung scan demonstrates a homogenous pattern of uptake in both lungs. No segmental or s ubsegmental defects are seen. CONCLUSION: No significant V/Q mismatches are seen. This is a low probability for pulmonary embolus. The heteroge neous ventilation portion of study can be seen with COPD. Sven Pichardo MD on August 10, 2016 at 18:30 Board Certified Radiologist. This report was verified electronically.
[2016-08-10] MEDS: INSULIN ASPART SUPPLEMENTAL SCALE SQ SCH ×2 (18:40→22:14)
[2016-08-10] MEDS ORDERED: HEPARIN SODIUM - IV 10,000 UNITS/10 ML VIAL IV PRN ×2 (19:45)
[2016-08-10] MEDS ORDERED: INSULIN DETEMIR 100 UNITS/ML VIAL SQ SCH (21:00)
[2016-08-10] MEDS: SODIUM CHLORIDE 0.9% FLUSH 5 ML FLUSH FLUSH SCH (21:00)
[2016-08-10] MEDS ORDERED: BUMETANIDE 1 MG TAB PO SCH (21:00)
[2016-08-10 22:05] LABS: APTT (PATIENT) 28.5 SEC (24.3-30.1)
[2016-08-10] MEDS: PRAVASTATIN SOD 80 MG TAB PO SCH (22:10)
[2016-08-10] MEDS: PIPERACIL-TAZO 2.25 GM PREMIX 50 ML IV SCH (22:12)
[2016-08-10] MEDS: HEPARIN SODIUM - SQ 10,000 UNITS/ML VIAL SQ SCH (22:15)
[2016-08-10] MEDS: BUDESONIDE-FORMOTEROL 160/4.5 MCG INHALER INH SCH (22:17)
[2016-08-11] VITALS (26 sets, daily range): BP systolic 83–136; BP diastolic 50–63; PULSE 58–92; RESP 18; TEMP 98–99.6; O2SAT 92–95
[2016-08-11 01:57] LABS: CKMB 3.6 NG/ML (0.5-3.6)
[2016-08-11] MEDS: INSULIN ASPART SUPPLEMENTAL SCALE SQ SCH ×4 (06:15→21:00)
[2016-08-11] MEDS: PIPERACIL-TAZO 2.25 GM PREMIX 50 ML IV SCH ×3 (06:19→21:23)
[2016-08-11] MEDS: BUMETANIDE 1 MG TAB PO SCH ×2 (06:23→09:17)
[2016-08-11 06:58] LABS: AUTOMATED NEUTROPHIL # 6.8 TH/MM3 (1.8-7.7); BASOPHIL % 0.3 % (0.0-2.0); EOSINOPHIL # 0.1 TH/MM3 (0-0.4); EOSINOPHIL % 1.4 % (0.0-4.0); HEMATOCRIT 45.8 % (35.0-46.0); HEMO FLAGS DIFF FINAL; LYMPH % 11.5 % (9.0-44.0); MEAN CELL VOLUME 88.9 FL (80.0-100.0); MEAN CORPUSCULAR HEMOGLOBIN 29.4 PG (27.0-34.0); MONO % 6.7 % (0.0-8.0); NEUT % 80.1 % (16.0-70.0); PLATELET COUNT 203 TH/MM3 (150-450); RED BLOOD COUNT 5.15 MIL/MM3 (4.00-5.30); RED CELL DISTRIBUTION WIDTH 17.5 % (11.6-17.2); WHITE BLOOD COUNT 8.5 TH/MM3 (4.0-11.0)
[2016-08-11 07:22] LABS: ALKALINE PHOSPHATASE 196 U/L (45-117); ALT (GPT) 25 U/L (10-53); ANION GAP 9 MEQ/L (5-15); AST (GOT) 15 U/L (15-37); BICARBONATE 32.1 MEQ/L (21.0-32.0); BLOOD UREA NITROGEN 45 MG/DL (7-18); CHLORIDE 101 MEQ/L (98-107); GLOMERULAR FILTRATION RATE 32 ML/MIN (>89); POTASSIUM 3.8 MEQ/L (3.5-5.1); SODIUM (NA) 142 MEQ/L (136-145); TOTAL BILIRUBIN ADULT 0.7 MG/DL (0.2-1.0)
--- NOTE | 2016-08-11 08:52 | HHI.PR ---
Subjective Remarks Follow-up uncontrolled diabetes/acute on chronic kidney disease/elevated troponin I 08/11/16-patient seen and examined, denies any chest pain or shortness of breath. Complains of bilateral lower stomach pain. Cardiac enzymes still elevated. Blood glucose low Objective Vitals Vital Signs Date Time Temp Pulse Resp B/P Pulse Ox O2 Delivery O2 Flow Rate FiO2 08/11/16 06:00 77 08/11/16 05:00 79 08/11/16 04:00 92 08/11/16 03:27 81 18 120/50 92 08/11/16 03:00 76 08/11/16 02:00 61 08/11/16 01:00 75 08/11/16 00:00 84 08/10/16 23:00 84 18 118/65 93 08/10/16 23:00 84 08/10/16 22:00 95 08/10/16 21:15 98.0 86 20 110/50 94 08/10/16 18:48 72 23 139/60 91 Nasal Cannula 4 08/10/16 14:30 82 20 114/74 91 Nasal Cannula 4 08/10/16 12:43 94 Nasal Cannula 4 08/10/16 12:43 94 Nasal Cannula 4 08/10/16 12:02 88 Room Air 08/10/16 11:50 97.8 I/O 08/10/16 08/10/16 08/10/16 08/11/16 08/11/16 08/11/16 07:00 15:00 23:00 07:00 15:00 23:00 Intake Total 550 ml Balance 550 ml Intake Oral 250 ml IV Total 300 ml # Voids 1 # Bowel Movements 0 Result Diagram: 08/11/16 0547 08/11/16 0547 Imaging Last Impressions Lower Extremity Ultrasound 08/10/16 1326 Signed Impressions: Service Date/Time: Wednesday, August 10, 2016 16:04 - CONCLUSION: No DVT. Sven Pichardo MD Chest X-Ray 08/10/16 1215 Signed Impressions: Service Date/Time: Wednesday, August 10, 2016 12:32 - CONCLUSION: No acute finding is identified. The linear opacity in the left lower lung zone may represent atelectasis. Sven Espinosa MD Renal Ultrasound 08/10/16 0000 Signed Impressions: Service Date/Time: Wednesday, August 10, 2016 16:04 - CONCLUSION: 1. 3.4 cm echogenic area seen of the posterior aspect of the bladder. It is difficult to determine if this represents a bladder mass or an impression on the bladder. This could be further evaluated with Urology consultation. Further imaging could be performed with a CT examination. 2. Benign cystic area seen at the kidneys bilaterally. Sven Pichardo MD Lung Scan-VQ Nuclear Medicine 08/10/16 0000 Signed Impressions: Service Date/Time: Wednesday, August 10, 2016 17:37 - CONCLUSION: No significant V/Q mismatches are seen. This is a low probability for pulmonary embolus. The heterogeneous ventilation portion of study can be seen with COPD. Sven Pichardo MD Objective Remarks GENERAL: NAD SKIN: Warm and dry. HEAD: Normocephalic. EYES: No scleral icterus. No injection or drainage. NECK: Supple, trachea midline. No JVD or lymphadenopathy. CARDIOVASCULAR: Regular rate and rhythm without murmurs, gallops, or rubs. RESPIRATORY: Breath sounds equal bilaterally. No accessory muscle use. GASTROINTESTINAL: Abdomen soft, non-tender, nondistended. MUSCULOSKELETAL: No cyanosis;+Trace edema BLE. BACK: Nontender without obvious deformity. No CVA tenderness. A/P Problem List: (1) Diabetes mellitus type 2, uncontrolled ICD Code: E11.65 Status: Chronic (2) Acute renal failure superimposed on stage 3 chronic kidney disease ICD Code: N17.9 Status: Acute (3) Hyperglycemia ICD Code: R73.9 Status: Resolved (4) Urinary tract infection ICD Code: N39.0 Status: Acute (5) Cellulitis ICD Code: L03.90 Status: Acute (6) Elevated troponin I level ICD Code: R79.89 Status: Acute Assessment and Plan 81-year-old female with 1-Diabetes type 2 uncontrolled: Secondary to noncompliance; now control however patient with low blood glucose therefore will decrease Lantus to 25 units at bedtime, continue medium sliding scale insulin with fingerstick blood glucose monitoring. Hold metformin. 2-Diastolic chronic CHF: 2-D echo 04/21/15 with EF 50-55%, on admission BNP 874 now down to 616 however chest x-ray no evidence of pulmonary edema; patient treated in ED with Lasix 80 mg IV 1 likely secondary to bilateral lower stomach edema. Currently on Bumex 2 mg by mouth twice a day. 2-D echo pending 3-Elevated troponin I: May be secondary to chronic kidney disease versus CHF, patient currently denying any chest pain. As patient with persistently elevated troponin I will consult cardiology for further evaluation for possible left heart catheterization. Continue to Hold on starting heparin drip. VQ scan 08/10/16 low probability for PE 4-Bilateral lower edema: Doppler lower extremity negative for DVT.. Status post Lasix 80 mg IV in ED, continue Bumex 2 mg by mouth twice a day 5-Acute on chronic kidney stage III disease: Status post 500 cc NS bolus in ED, renal indices improving with gentle IV fluid hydration .renal ultrasound without any evidence of hydronephrosis however 3.4 cm echogenic area seen of the posterior aspect of the bladder for which would make consider urology consultation versus CT abdomen/Pelvis. Monitor BUN and creatinine 6-Bilateral lower extremities cellulitis: Status post Zosyn and vancomycin 1 in ED, continue Zosyn pending blood culture 7-UTI: Abnormal UA, status post Zosyn and vancomycin IV 1 in ED, currently on Zosyn and follow urine culture 8-Lactic acidosis: Resolved 9-Hypertension: Normotensive on beta marie 10Hyperlipidemia: Continue statin 11-History of COPD: Chest x-ray noted and reviewed without any acute finding, DuoNeb when necessary and continue outpatient medications 12-RLS: Continue outpatient med 13-DVT prophylaxis: Heparin subcutaneous 14-history of hemorrhoids: Stable Problem Qualifiers (1) Cellulitis: Qualified Code: L03.119 - Cellulitis of lower extremity, unspecified laterality Tono Rivero MD Aug 11, 2016 08:52
[2016-08-11] MEDS: SODIUM CHLORIDE 0.9% FLUSH 5 ML FLUSH FLUSH SCH ×2 (09:00→21:23)
[2016-08-11] MEDS: BUDESONIDE-FORMOTEROL 160/4.5 MCG INHALER INH SCH ×2 (09:00→21:22)
[2016-08-11] MEDS: METOPROLOL TARTRATE 25 MG TAB PO SCH (09:17)
[2016-08-11] MEDS: CITALOPRAM HYDROBROMIDE 20 MG TAB PO SCH (09:17)
[2016-08-11] MEDS: ASPIRIN 325 MG TAB PO SCH (09:17)
[2016-08-11] MEDS: HEPARIN SODIUM - SQ 10,000 UNITS/ML VIAL SQ SCH ×2 (09:18→21:28)
[2016-08-11] MEDS: ACETAMINOPHEN/HYDROcodone 325 MG/5 MG TAB PO PRN ×3 (10:31→21:26)
--- NOTE | 2016-08-11 17:54 | MB ---
cc: CHRIS PAREDES DO DATE OF CONSULTATION 08/11/2016 REASON FOR CONSULTATION Elevated troponin. HISTORY OF PRESENT ILLNESS Linda Garcia is a pleasant 81-year-old female who presented to [place] emergency room on August 10, 2016 with the complaint of shortness of breath and lower extremity edema. She has also noticed some generalized weakness. She feels that her lower extremities have been more edematous and are becoming more painful. She has noticed some increased fluid leaking out of her legs. Troponin was checked and it was mildly elevated at 0.66. In speaking to her at that time and than today she has had no chest pain. PAST MEDICAL HISTORY 1. Coronary artery disease. 2. Diabetes mellitus. 3. Hypertension. 4. COPD on home oxygen. PAST SURGICAL HISTORY 1. Coronary artery bypass grafting (September 13, 2011) with PETERSON to LAD, SVG to obtuse marginal. 2. Cardiac catheterization (August 12, 2011) left main severely diseased 50-60% ostial, LAD high-grade 90% long proximal stenosis, circumflex gives off one large OM with distal circumflex being small, RCA totally occluded at the ostium and heavily calcified with [id number] collaterals. 3. Cholecystectomy. 4. Hysterectomy. ALLERGIES NO KNOWN DRUG ALLERGIES. MEDICATIONS 1. Losartan 25 mg daily 2. Celexa 20 mg daily 3. Ativan 0.5 milligrams twice a day as needed. 4. Temazepam 15 mg every night as needed. 5. Advair 500/50 b.i.d. 6. Combivent one puff q.i.d. 7. DuoNeb 0.5 / 2.5 q.i.d. 8. Metoprolol tartrate 25 mg daily. 9. Metformin 500 mg daily. 10. Fosamax 70 mg weekly. 11. Requip 1 mg t.i.d. 12. Pravastatin 80 mg every night. 13. NovoLog sliding scale. 14. Lantus 35 units every night. 15. Bumex 2 mg b.i.d. 16. Aspirin 325 mg daily. 17. Lortab two to three times per day as needed. FAMILY HISTORY Denies premature coronary artery disease or sudden cardiac within the family. SOCIAL HISTORY The patient denies alcohol or drug abuse. Positive for tobacco abuse at one pack per day. REVIEW OF SYSTEMS 14 systems were reviewed including osteopathic pertinent positives and negatives above, otherwise negative. PHYSICAL EXAMINATION VITAL SIGNS: Temperature 98.5, heart rate 80, blood pressure 120/60, respirations 18, pulse ox 95% on room air. GENERAL: In general the patient appears well in no acute distress. Alert awake and oriented x3. HEENT: Extraocular muscles intact. Mucous membranes moist. NECK: Supple. No JVD at 45 degrees. No carotid bruits heard bilaterally. Carotid upstroke is brisk in nature. CARDIOVASCULAR: Heart is regular rate and rhythm. Positive first and second heart sounds with no known murmurs, gallops or rubs. PMI is undetectable. LUNGS: Have decreased breath sounds at bilateral bases but no overt wheezes, rales or rhonchi. ABDOMEN: Soft, nontender, nondistended. No organomegaly noted. EXTREMITIES: Have 1-2+ pitting edema bilaterally with chronic changes of edema. NEUROLOGICAL: No focal deficits. SKIN: Warm, dry and intact. OSTEOPATHIC: Mild kyphoscoliosis. No lordosis or paraspinal tender points. LABORATORY FINDINGS Hemoglobin 15.1, hematocrit 45.8, platelets 203. Potassium 3.8, BUN 45, creatinine 1.57. Troponin 0.66 increasing to 0.71 and back down to 0.66. Electrocardiogram is sinus rhythm at 76 beats per minute, possible age indeterminate septal infarct, minimal ST-T wave changes laterally cannot rule out ischemia. IMPRESSION 1. Elevated troponin of unknown cause, possibly type 1 versus type 2, non-ST elevation myocardial infarction. 2. Significant lower extremity edema most likely secondary to diastolic dysfunction versus fluid overload state. 3. Urinary tract infection. 4. Coronary artery disease with history of coronary artery bypass as above. 5. COPD on home oxygen. 6. Hypertension. 7. Diabetes mellitus. 8. Acute on chronic kidney disease stage III. RECOMMENDATIONS 1. Linda Garcia came in originally with the lower extremity edema and some mild shortness of breath which she states is chronic in nature. 2. Troponins were checked which were mildly elevated. It appears the patient is relatively asymptomatic and not had any episodes of chest pain. 3. I will discuss with her consideration of medical management versus possible stress testing or cardiac catheterization to see how she feels about how we should proceed with an abnormal troponin for which the patient appears to be relatively asymptomatic. Thank you for allowing me to see Linda Garcia. If there are any questions please do not hesitate to call. Chris BELL/LUISANA /12:26 PM /5:34 PM
[2016-08-11] MEDS: PRAVASTATIN SOD 80 MG TAB PO SCH (21:26)
[2016-08-11] MEDS: INSULIN DETEMIR 100 UNITS/ML VIAL SQ SCH (21:27)
--- NOTE | 2016-08-11 23:29 | EKG ---
Date Performed: 08/11/2016 Time Performed: 01:19:30 PTAGE: 81 years EKG: Sinus rhythm Possible septal infarct - age undetermined Lateral T wave changes may be due to myocardial ischemia Abnormal ECG PREVIOUS TRACING : 08/10/2016 18.53 Compared to prior tracing no significant change DOCTOR: Chris Bliss Interpretating Date/Time 08/11/2016 23:28:07
--- NOTE | 2016-08-11 23:42 | EKG ---
Date Performed: 08/10/2016 Time Performed: 18:53:55 PTAGE: 81 years EKG: Sinus rhythm SEPTAL MYOCARDIAL INFARCTION Nonspecific ST and T wave abnormalities ABNORMAL ECG PREVIOUS TRACING : 08/10/2016 12.46 Compared to prior tracing no significant change DOCTOR: Chris Bliss Interpretating Date/Time 08/11/2016 23:41:58
[2016-08-12] VITALS (8 sets, daily range): BP systolic 108–156; BP diastolic 55–75; PULSE 60–100; RESP 16–20; TEMP 98.1–98.9; O2SAT 94–97
[2016-08-12 05:34] LABS: BICARBONATE 34.1 MEQ/L (21.0-32.0); POTASSIUM 3.5 MEQ/L (3.5-5.1)
[2016-08-12] MEDS: INSULIN ASPART SUPPLEMENTAL SCALE SQ SCH ×4 (05:40→23:10)
[2016-08-12] MEDS: PIPERACIL-TAZO 2.25 GM PREMIX 50 ML IV SCH ×3 (05:40→21:47)
[2016-08-12] MEDS: ACETAMINOPHEN/HYDROcodone 325 MG/5 MG TAB PO PRN ×3 (09:52→21:34)
[2016-08-12] MEDS: CITALOPRAM HYDROBROMIDE 20 MG TAB PO SCH (09:53)
[2016-08-12] MEDS: BUMETANIDE 1 MG TAB PO SCH ×2 (09:53→21:34)
[2016-08-12] MEDS: HEPARIN SODIUM - SQ 10,000 UNITS/ML VIAL SQ SCH ×2 (09:53→21:35)
[2016-08-12] MEDS: ASPIRIN 325 MG TAB PO SCH (09:53)
[2016-08-12] MEDS: SODIUM CHLORIDE 0.9% FLUSH 5 ML FLUSH FLUSH SCH ×2 (09:54→21:35)
[2016-08-12] MEDS: METOPROLOL TARTRATE 25 MG TAB PO SCH (10:00)
--- NOTE | 2016-08-12 10:14 | HHI.PR ---
Subjective Remarks Follow-up uncontrolled diabetes/acute on chronic kidney disease/elevated troponin I/non-ST elevation ME 08/11/16-patient seen and examined, denies any chest pain or shortness of breath. Complains of bilateral lower stomach pain. Cardiac enzymes still elevated. Blood glucose low 08/12/16-patient seen and examined, no acute event overnight. Improving bilateral lower extremity swelling. Renal indices improving and blood glucose now 89. Patient was seen by cardiology yesterday. Objective Vitals Vital Signs Date Time Temp Pulse Resp B/P Pulse Ox O2 Delivery O2 Flow Rate FiO2 08/12/16 03:37 98.9 82 18 139/70 94 08/12/16 03:08 71 08/11/16 23:00 69 08/11/16 23:00 78 18 122/63 92 08/11/16 22:00 74 08/11/16 21:26 Nasal Cannula 3.00 08/11/16 21:00 73 08/11/16 20:00 80 08/11/16 19:00 69 08/11/16 19:00 98.0 66 18 136/60 94 08/11/16 18:47 18 08/11/16 18:00 68 08/11/16 17:00 58 08/11/16 16:00 61 08/11/16 15:00 70 08/11/16 15:00 98.4 66 18 115/63 94 08/11/16 14:00 72 08/11/16 13:00 63 08/11/16 12:05 95 Nasal Cannula 3.00 08/11/16 12:00 68 08/11/16 11:00 99.6 60 18 83/54 94 08/11/16 11:00 79 I/O 08/11/16 08/11/16 08/11/16 08/12/16 08/12/16 08/12/16 07:00 15:00 23:00 07:00 15:00 23:00 Intake Total 550 ml 770 ml Output Total 1000 ml Balance 550 ml -230 ml Intake Oral 250 ml 720 ml IV Total 300 ml 50 ml Output Urine Total 1000 ml Stool Total 0 ml # Voids 1 5 # Bowel Movements 0 Result Diagram: 08/11/16 0547 08/12/16 0432 Imaging Last Impressions Lower Extremity Ultrasound 08/10/16 1326 Signed Impressions: Service Date/Time: Wednesday, August 10, 2016 16:04 - CONCLUSION: No DVT. Sven Pichardo MD Chest X-Ray 08/10/16 1215 Signed Impressions: Service Date/Time: Wednesday, August 10, 2016 12:32 - CONCLUSION: No acute finding is identified. The linear opacity in the left lower lung zone may represent atelectasis. Sven Espinosa MD Renal Ultrasound 08/10/16 0000 Signed Impressions: Service Date/Time: Wednesday, August 10, 2016 16:04 - CONCLUSION: 1. 3.4 cm echogenic area seen of the posterior aspect of the bladder. It is difficult to determine if this represents a bladder mass or an impression on the bladder. This could be further evaluated with Urology consultation. Further imaging could be performed with a CT examination. 2. Benign cystic area seen at the kidneys bilaterally. Sven Pichardo MD Lung Scan-VQ Nuclear Medicine 08/10/16 0000 Signed Impressions: Service Date/Time: Wednesday, August 10, 2016 17:37 - CONCLUSION: No significant V/Q mismatches are seen. This is a low probability for pulmonary embolus. The heterogeneous ventilation portion of study can be seen with COPD. Sven Pichardo MD Objective Remarks GENERAL: NAD SKIN: Warm and dry. HEAD: Normocephalic. EYES: No scleral icterus. No injection or drainage. NECK: Supple, trachea midline. No JVD or lymphadenopathy. CARDIOVASCULAR: Regular rate and rhythm without murmurs, gallops, or rubs. RESPIRATORY: Breath sounds equal bilaterally. No accessory muscle use. GASTROINTESTINAL: Abdomen soft, non-tender, nondistended. MUSCULOSKELETAL: No cyanosis;+Trace edema BLE. BACK: Nontender without obvious deformity. No CVA tenderness. A/P Problem List: (1) Diabetes mellitus type 2, uncontrolled ICD Code: E11.65 Status: Chronic (2) Acute renal failure superimposed on stage 3 chronic kidney disease ICD Code: N17.9 Status: Acute (3) Hyperglycemia ICD Code: R73.9 Status: Resolved (4) Urinary tract infection ICD Code: N39.0 Status: Acute (5) Cellulitis ICD Code: L03.90 Status: Acute (6) Elevated troponin I level ICD Code: R79.89 Status: Acute (7) Non-ST elevation ME (NSTEMI) ICD Code: I21.4 Status: Acute Assessment and Plan 81-year-old female with 1-Diabetes type 2 uncontrolled: Secondary to noncompliance; currently normoglycemic on Lantus 25 units at bedtime, continue medium sliding scale insulin with fingerstick blood glucose monitoring. Hold metformin. 2-Diastolic chronic CHF: 2-D echo 04/21/15 with EF 50-55%, on admission BNP 874 now down to 616 however chest x-ray no evidence of pulmonary edema; patient treated in ED with Lasix 80 mg IV 1 likely secondary to bilateral lower stomach edema. Currently on Bumex 2 mg by mouth twice a day. 2-D echo pending 3-non-ST elevation ME /Elevated troponin I: Appreciate input from cardiology who is evaluated for possible stress test versus left heart catheterization. Continue to Hold on starting heparin drip. VQ scan 08/10/16 low probability for PE 4-Bilateral lower edema: Doppler lower extremity negative for DVT. Status post Lasix 80 mg IV in ED, improving and continue Bumex 2 mg by mouth twice a day 5-Acute on chronic kidney stage III disease: Improving renal indices .renal ultrasound without any evidence of hydronephrosis however 3.4 cm echogenic area seen of the posterior aspect of the bladder for which would make consider urology consultation versus CT abdomen/Pelvis. Monitor BUN and creatinine 6-Bilateral lower extremities cellulitis: Status post Zosyn and vancomycin 1 in ED, improving on Zosyn as blood culture negative so far 7-UTI: Abnormal UA, status post Zosyn and vancomycin IV 1 in ED, currently on Zosyn and follow urine culture 8-Lactic acidosis: Resolved 9-Hypertension: Normotensive on beta marie 10Hyperlipidemia: Continue statin 11-History of COPD: Chest x-ray without any acute finding, DuoNeb when necessary and continue outpatient medications 12-RLS: Continue outpatient med 13-DVT prophylaxis: Heparin subcutaneous 14-history of hemorrhoids: Stable Problem Qualifiers (1) Cellulitis: Qualified Code: L03.119 - Cellulitis of lower extremity, unspecified laterality Tono Rivero MD Aug 12, 2016 10:14
[2016-08-12] MEDS: BUDESONIDE-FORMOTEROL 160/4.5 MCG INHALER INH SCH ×2 (11:57→21:36)
--- NOTE | 2016-08-12 12:47 | PD.CARD.PN ---
Subjective Subjective Remarks No chest pain, no shortness of breath, doing well Objective Medications Current Medications Medications (Trade) Dose Ordered Sig/Lyle Route Start Time Stop Time Status Last Admin (Heparin Inj) 5,000 units UNSCH PRN IV 08/10/16 19:45 Hold Heparin Sodium (Porcine) 2500 units 2,500 units UNSCH PRN IV 08/10/16 19:45 Hold (Heparin-D5W Inj) 250 ml @ 0 mls/hr TITRATE IV 08/10/16 13:45 Hold (NS Flush) 2 ml UNSCH PRN FLUSH 08/10/16 14:15 (NS Flush) 2 ml BID FLUSH 08/10/16 21:00 08/12/16 09:54 (Tylenol) 650 mg Q4H PRN PO 08/10/16 14:15 (Zofran Inj) 4 mg Q6H PRN IVP 08/10/16 14:15 (Tylenol) 650 mg Q6H PRN PO 08/10/16 14:15 ([place]rokee 5-325 Mg) 1 tab Q4H PRN PO 08/10/16 14:15 08/12/16 09:52 (Narcan Inj) 0.4 mg UNSCH PRN IV 08/10/16 14:15 (D50w (Vial) Inj) 25 ml UNSCH PRN IV PUSH 08/10/16 14:15 (Glucagon Inj) 1 mg UNSCH PRN OTHER 08/10/16 14:15 (Aspirin) 325 mg DAILY PO 08/11/16 09:00 08/12/16 09:53 (CeleXA) 20 mg DAILY PO 08/11/16 09:00 08/12/16 09:53 (Lopressor) 25 mg DAILY PO 08/11/16 09:00 08/12/16 10:00 (Pravachol) 80 mg HS PO 08/10/16 21:00 08/11/16 21:26 (Requip) 1 mg TID PO 08/10/16 18:00 08/12/16 09:53 Budesonide/ Formoterol Fumarate 2 puff 2 puff BID INH 08/10/16 21:00 08/12/16 11:57 (Zosyn 2.25 Gm Premix) 50 ml @ 100 mls/hr Q8H IV 08/10/16 22:00 08/12/16 05:40 (Bumetanide) 2 mg BID PO 08/11/16 07:00 08/12/16 09:53 (Nitrostat Sl) 0.4 mg Q5M PRN SL 08/10/16 16:15 (Heparin Inj) 5,000 units Q12HR SQ 08/10/16 21:00 08/12/16 09:53 (Levemir Inj) 25 units HS SQ 08/11/16 21:00 08/11/16 21:27 Vital Signs / I&O Vital Signs Date Time Temp Pulse Resp B/P Pulse Ox O2 Delivery O2 Flow Rate FiO2 08/12/16 12:00 98.8 60 16 108/56 97 08/12/16 08:00 100 08/12/16 08:00 98.1 78 18 156/75 94 08/12/16 03:37 98.9 82 18 139/70 94 08/12/16 03:08 71 08/11/16 23:00 69 08/11/16 23:00 78 18 122/63 92 08/11/16 22:00 74 08/11/16 21:26 Nasal Cannula 3.00 08/11/16 21:00 73 08/11/16 20:00 80 08/11/16 19:00 69 08/11/16 19:00 98.0 66 18 136/60 94 08/11/16 18:47 18 08/11/16 18:00 68 08/11/16 17:00 58 08/11/16 16:00 61 08/11/16 15:00 70 08/11/16 15:00 98.4 66 18 115/63 94 08/11/16 14:00 72 08/11/16 13:00 63 I/O 08/11/16 08/11/16 08/11/16 08/12/16 08/12/16 08/12/16 07:00 15:00 23:00 07:00 15:00 23:00 Intake Total 550 ml 770 ml Output Total 1000 ml Balance 550 ml -230 ml Intake Oral 250 ml 720 ml IV Total 300 ml 50 ml Output Urine Total 1000 ml Stool Total 0 ml # Voids 1 5 # Bowel Movements 0 Physical Exam GENERAL: NAD, AAO SKIN: Warm and dry. HEAD: Atraumatic. Normocephalic. EYES: Pupils equal and round. No scleral icterus. No injection or drainage. ENT: No nasal bleeding or discharge. Mucous membranes pink and moist. NECK: Trachea midline. No JVD. CARDIOVASCULAR: Regular rate and rhythm. RESPIRATORY: No accessory muscle use. Decreased breath sounds bilaterally GASTROINTESTINAL: Abdomen soft, non-tender, nondistended. Hepatic and splenic margins not palpable. MUSCULOSKELETAL: 2+ pitting edema bilaterally NEUROLOGICAL: Awake and alert. No obvious cranial nerve deficits. Motor grossly within normal limits. Five out of 5 muscle strength in the arms and legs. Normal speech. PSYCHIATRIC: Appropriate mood and affect; insight and judgment normal. Laboratory Laboratory Tests Test 08/12/16 04:32 Sodium Level 142 MEQ/L Potassium Level 3.5 MEQ/L Chloride Level 102 MEQ/L Carbon Dioxide Level 34.1 MEQ/L Anion Gap 6 MEQ/L Blood Urea Nitrogen 34 MG/DL Creatinine 1.49 MG/DL Estimat Glomerular Filtration 34 ML/MIN Rate Random Glucose 89 MG/DL Calcium Level 8.2 MG/DL Assessment and Plan Problem List: (1) Elevated troponin I level (2) CKD (chronic kidney disease) stage 3, GFR 30-59 ml/min (3) CHF (congestive heart failure) (4) Pedal edema (5) Urinary tract infection (6) Cellulitis Assessment and Plan 1) CHF, unsure if diastolic vs systolic, awaiting echo at this time 2) Continue diuresis 3) I came back to speak to Linda and her niece (POA) was there, long discussion, agrees to wait for echo and then decide on medical management vs ischemic evaluation, leaning to medical management 4) Linda also admitted to eating a lot of deli salami and cheese, I'm sure taking in excessive amounts of sodium, which may be part of the cause Problem Qualifiers (1) CHF (congestive heart failure): Qualified Code: I50.9 - Acute on chronic congestive heart failure, unspecified congestive heart failure type (2) Cellulitis: Qualified Code: L03.119 - Cellulitis of lower extremity, unspecified laterality Chris Bliss DO Aug 12, 2016 12:47
--- NOTE | 2016-08-12 21:01 | EC ---
Study Study Date:08/12/2016 STUDY CONCLUSIONS SUMMARY LEFT VENTRICLE: The cavity size was normal. Wall thickness was normal. Systolic function was at the lower limits of normal. The estimated ejection fraction was 50%. Wall motion was normal; there were no regional wall motion abnormalities. If LV function is below 40, please consider prescribing an ACEI or ARB or document rationale for non-use. PROCEDURE DATA STUDY STATUS: Elective. Procedure: Transthoracic echocardiography. Image quality was poor. Scanning was performed from the parasternal, apical, and subcostal acoustic windows. Study completion: The patient tolerated the procedure well. Transthoracic echocardiography. M-mode, complete 2D, complete spectral Doppler, and color Doppler. Patient status: Inpatient. CARDIAC ANATOMY LEFT VENTRICLE: The cavity size was normal. Wall thickness was normal. Systolic function was at the lower limits of normal. The estimated ejection fraction was 50%. Wall motion was normal; there were no regional wall motion abnormalities. AORTIC VALVE: Trileaflet; normal thickness leaflets. Doppler: Transvalvular velocity was within the normal range. There was no stenosis. No regurgitation. Valve area: 2.05cm^2 (Vmax). AORTA: Aortic root: The aortic root was normal in size. MITRAL VALVE: Structurally normal valve. Doppler: Transvalvular velocity was within the normal range. There was no evidence for stenosis. No regurgitation. Peak gradient: 4mm Hg (D). LEFT ATRIUM: The atrium was normal in size. RIGHT VENTRICLE: The cavity size was normal. Wall thickness was normal. PULMONIC VALVE: Doppler: Transvalvular velocity was within the normal range. There was no evidence for stenosis. No regurgitation. TRICUSPID VALVE: Structurally normal valve. Doppler: Transvalvular velocity was within the normal range. Trace regurgitation. PULMONARY ARTERY: The main pulmonary artery was normal-sized. Systolic pressure was within the normal range. RIGHT ATRIUM: The atrium was normal in size. PERICARDIUM: There was no pericardial effusion. SYSTEMIC VEINS: Inferior vena cava: The vessel was normal in size. BASIC MEASUREMENTS ADULT NORMAL Left ventricle LV internal dimension, ED, chordal level, *35.6 mm 43-52 PLAX LV internal dimension, ES, chordal level, 27.4 mm 23-38 PLAX Fractional shortening, chordal level, PLAX *23 % >29 LV posterior wall thickness, ED 9.69 mm IVS/LVPW ratio, ED 0.94 <1.3 Ventricular septum Septal thickness, ED 9.14 mm Aortic valve Leaflet separation 15 mm 15-26 BASIC MEASUREMENTS ADULT NORMAL Aortic valve Leaflet separation 15 mm 15-26 Aorta Root diameter, ED 20 mm 20-37 Left atrium Anterior-posterior dimension, ES 35 mm 19-40 LA/aortic root ratio 1.75 DOPPLER MEASUREMENTS ADULT NORMAL Main pulmonary artery Pressure, S 27 mm Hg =30 Aortic valve Peak velocity, S 114 cm/s Valve area, Vmax 2.05 cm^2 Mitral valve Peak E-wave velocity 98.2 cm/s Peak A-wave velocity 90.8 cm/s Deceleration time 183 ms 150-230 Peak gradient, D 4 mm Hg Peak E/A ratio 1.1 Tricuspid valve Regurgitant peak velocity 209 cm/s Peak RV-RA gradient, S 17 mm Hg Maximal regurgitant velocity 209 cm/s Systemic veins Estimated CVP 10 mm Hg Right ventricle RV pressure, S 27 mm Hg <30 LEGEND: Mean values are shown as u=mean value. Asterisk (*) dumont values outside specified normal range. Prepared and signed by Mae Lee [id number]
[2016-08-12] MEDS: PRAVASTATIN SOD 80 MG TAB PO SCH (21:34)
--- NOTE | 2016-08-12 21:35 | EKG ---
Date Performed: 08/10/2016 Time Performed: 12:46:42 PTAGE: 81 years EKG: Sinus rhythm SEPTAL MYOCARDIAL INFARCTION Nonspecific ST and T wave abnormalities ABNORMAL ECG PREVIOUS TRACING : 03/20/2016 12.20 Compared to the previous tracing, non-specific ST/T wave ch anges appear new DOCTOR: Chris Bliss Interpretating Date/Time 08/12/2016 21:33:29
[2016-08-12] MEDS: INSULIN DETEMIR 100 UNITS/ML VIAL SQ SCH (21:40)
[2016-08-12] MEDS ORDERED: diphenhydrAMINE HCL 25 MG CAP PO ONE (22:30)
[2016-08-13 00:35] VITALS: BP 142/58; PULSE 68; RESP 20; TEMP 98.3; O2SAT 95
[2016-08-13 01:04] VITALS: O2SAT 95
[2016-08-13] MEDS ORDERED: TEMAZEPAM 15 MG CAP PO PRN (02:00)
[2016-08-13] MEDS: ACETAMINOPHEN/HYDROcodone 325 MG/5 MG TAB PO PRN ×3 (04:59→15:19)
[2016-08-13] MEDS: PIPERACIL-TAZO 2.25 GM PREMIX 50 ML IV SCH ×2 (05:02→13:35)
[2016-08-13 05:05] VITALS: BP 154/64; PULSE 86; RESP 18; TEMP 98.1; O2SAT 96
[2016-08-13] MEDS: INSULIN ASPART SUPPLEMENTAL SCALE SQ SCH ×2 (05:39→11:55)
[2016-08-13 07:24] LABS: HEMATOCRIT 45.2 % (35.0-46.0); MEAN CELL VOLUME 89.4 FL (80.0-100.0); MEAN CORPUSCULAR HEMOGLOBIN 29.6 PG (27.0-34.0); MEAN CORPUSCULAR HGB CONC 33.1 % (32.0-36.0); PLATELET COUNT 178 TH/MM3 (150-450); RED BLOOD COUNT 5.06 MIL/MM3 (4.00-5.30); RED CELL DISTRIBUTION WIDTH 16.9 % (11.6-17.2); REVIEW FLAG FINAL; WHITE BLOOD COUNT 7.2 TH/MM3 (4.0-11.0)
[2016-08-13 07:48] LABS: BICARBONATE 33.3 MEQ/L (21.0-32.0); POTASSIUM 3.7 MEQ/L (3.5-5.1)
[2016-08-13 08:00] VITALS: BP 143/63; PULSE 82; RESP 20; TEMP 97.8; O2SAT 94
[2016-08-13] MEDS: SODIUM CHLORIDE 0.9% FLUSH 5 ML FLUSH FLUSH SCH (09:23)
[2016-08-13] MEDS: ASPIRIN 325 MG TAB PO SCH (09:24)
[2016-08-13] MEDS: BUMETANIDE 1 MG TAB PO SCH (09:24)
[2016-08-13] MEDS: METOPROLOL TARTRATE 25 MG TAB PO SCH (09:24)
[2016-08-13] MEDS: CITALOPRAM HYDROBROMIDE 20 MG TAB PO SCH (09:25)
[2016-08-13] MEDS: HEPARIN SODIUM - SQ 10,000 UNITS/ML VIAL SQ SCH (09:25)
[2016-08-13] MEDS: BUDESONIDE-FORMOTEROL 160/4.5 MCG INHALER INH SCH (09:25)
[2016-08-13] MEDS ORDERED: REST15CA PO (11:57)
[2016-08-13] MEDS ORDERED: LEVEMIR SQ (11:57)
[2016-08-13] MEDS ORDERED: CLIN1CAP6 PO (11:57)
[2016-08-13] MEDS ORDERED: HYDR-3516 PO (11:57)
[2016-08-13] MEDS ORDERED: LACTCHW3 CHEW (11:57)
[2016-08-13 12:00] VITALS: BP 140/66; PULSE 61; RESP 20; TEMP 98.5; O2SAT 93
--- NOTE | 2016-08-13 12:01 | HHI.PR ---
Subjective Remarks Follow-up uncontrolled diabetes/acute on chronic kidney disease/elevated troponin I/non-ST elevation NV 08/11/16-patient seen and examined, denies any chest pain or shortness of breath. Complains of bilateral lower stomach pain. Cardiac enzymes still elevated. Blood glucose low 08/12/16-patient seen and examined, no acute event overnight. Improving bilateral lower extremity swelling. Renal indices improving and blood glucose now 89. Patient was seen by cardiology yesterday. 08/13/16-patient seen and examined reports significant improvement of low stomach the edema and erythema. Denies any significant shortness of breath. Glucose stable. Objective Vitals Vital Signs Date Time Temp Pulse Resp B/P Pulse Ox O2 Delivery O2 Flow Rate FiO2 08/13/16 05:05 98.1 86 18 154/64 96 08/13/16 01:04 95 08/13/16 00:35 98.3 68 20 142/58 95 08/12/16 20:50 98.1 69 18 145/66 94 08/12/16 20:00 Nasal Cannula 4.00 08/12/16 20:00 66 08/12/16 16:00 98.7 82 20 120/55 94 08/12/16 14:38 98.2 71 20 121/56 I/O 08/12/16 08/12/16 08/12/16 08/13/16 08/13/16 08/13/16 07:00 15:00 23:00 07:00 15:00 23:00 Intake Total 50 ml Output Total 350 ml Balance -300 ml IV Total 50 ml Output Urine Total 350 ml # Voids 0 2 # Bowel Movements 1 0 2 Result Diagram: 08/13/16 0600 08/13/16 0600 Imaging Last Impressions Lower Extremity Ultrasound 08/10/16 1326 Signed Impressions: Service Date/Time: Wednesday, August 10, 2016 16:04 - CONCLUSION: No DVT. Sven Pichardo MD Chest X-Ray 08/10/16 1215 Signed Impressions: Service Date/Time: Wednesday, August 10, 2016 12:32 - CONCLUSION: No acute finding is identified. The linear opacity in the left lower lung zone may represent atelectasis. Sven Espinosa MD Renal Ultrasound 08/10/16 0000 Signed Impressions: Service Date/Time: Wednesday, August 10, 2016 16:04 - CONCLUSION: 1. 3.4 cm echogenic area seen of the posterior aspect of the bladder. It is difficult to determine if this represents a bladder mass or an impression on the bladder. This could be further evaluated with Urology consultation. Further imaging could be performed with a CT examination. 2. Benign cystic area seen at the kidneys bilaterally. Sven Pichardo MD Lung Scan-VQ Nuclear Medicine 08/10/16 0000 Signed Impressions: Service Date/Time: Wednesday, August 10, 2016 17:37 - CONCLUSION: No significant V/Q mismatches are seen. This is a low probability for pulmonary embolus. The heterogeneous ventilation portion of study can be seen with COPD. Sven Pichardo MD Objective Remarks GENERAL: NAD SKIN: Warm and dry. HEAD: Normocephalic. EYES: No scleral icterus. No injection or drainage. NECK: Supple, trachea midline. No JVD or lymphadenopathy. CARDIOVASCULAR: Regular rate and rhythm without murmurs, gallops, or rubs. RESPIRATORY: Breath sounds equal bilaterally. No accessory muscle use. GASTROINTESTINAL: Abdomen soft, non-tender, nondistended. MUSCULOSKELETAL: No cyanosis;+Trace edema BLE. BACK: Nontender without obvious deformity. No CVA tenderness. Procedures None A/P Problem List: (1) Diabetes mellitus type 2, uncontrolled ICD Code: E11.65 Status: Chronic (2) Acute renal failure superimposed on stage 3 chronic kidney disease ICD Code: N17.9 Status: Acute (3) Hyperglycemia ICD Code: R73.9 Status: Resolved (4) Urinary tract infection ICD Code: N39.0 Status: Resolved (5) Cellulitis ICD Code: L03.90 Status: Acute (6) Elevated troponin I level ICD Code: R79.89 Status: Acute (7) Non-ST elevation NV (NSTEMI) ICD Code: I21.4 Status: Acute Assessment and Plan 81-year-old female with 1-Diabetes type 2 uncontrolled: currently normoglycemic on Lantus 25 units at bedtime, continue medium sliding scale insulin with fingerstick blood glucose monitoring. Hold metformin. 2-Diastolic chronic CHF: 2-D echo 04/21/15 with EF 50-55%, and repeat 2-D echo July 2016 with EF 50%. on admission BNP improving since admission.chest x- ray no evidence of pulmonary edema; patient treated in ED with Lasix 80 mg IV 1 likely secondary to bilateral lower stomach edema. Good diuresis on Bumex 2 mg by mouth twice a day. 2-D echo with EF 50% 3-non-ST elevation NV /Elevated troponin I: Appreciate input from cardiology . Continue with current medical management . Continue to Hold on starting heparin drip. VQ scan 08/10/16 low probability for PE 4-Bilateral lower edema: Doppler lower extremity negative for DVT. Status post Lasix 80 mg IV in ED, improving and continue Bumex 2 mg by mouth twice a day 5-Acute on chronic kidney stage III disease: Improving renal indices .renal ultrasound without any evidence of hydronephrosis however 3.4 cm echogenic area seen of the posterior aspect of the bladder . Monitor BUN and creatinine 6-Bilateral lower extremities cellulitis: Status post Zosyn and vancomycin 1 in ED, improving on Zosyn as blood culture NTD therefore will discontinue Zosyn and start clindamycin 300 mg every 8H5 days on discharge 7-UTI: Abnormal UA, status post Zosyn and vancomycin IV 1 in ED, currently on Zosyn and urine culture negative therefore will discontinue Zosyn 8-Lactic acidosis: Resolved 9-Hypertension: Normotensive on beta marie 10Hyperlipidemia: Continue statin 11-History of COPD: Chest x-ray without any acute finding, DuoNeb when necessary and continue outpatient medications 12-RLS: Continue outpatient med 13-DVT prophylaxis: Heparin subcutaneous 14-history of hemorrhoids: Stable Problem Qualifiers (1) Cellulitis: Qualified Code: L03.119 - Cellulitis of lower extremity, unspecified laterality Tono Rivero MD Aug 13, 2016 12:01
--- NOTE | 2016-08-13 12:10 | HHI.DS ---
Discharge Summary Admission Date Aug 10, 2016 at 14:03 Discharge Date: Aug 13, 2016 Admitting Diagnosis (1) Diabetes mellitus type 2, uncontrolled ICD Code: E11.65 (2) Acute renal failure superimposed on stage 3 chronic kidney disease ICD Code: N17.9 (3) Hyperglycemia ICD Code: R73.9 (4) Urinary tract infection ICD Code: N39.0 (5) Cellulitis ICD Code: L03.90 (6) Elevated troponin I level ICD Code: R79.89 (7) Non-ST elevation ND (NSTEMI) ICD Code: I21.4 Procedures None Brief History - From Admission 81-year-old female with past medical history of hypertension, diabetes, CAD status post CABG, COPD, CKD was brought to the ED for evaluation of worsening generalized weakness increased shortness of breath and bilateral lower extremity edema and pain 1 day. Patient states, she noticed that her legs were leaking today. Patient was found on admission to have elevated blood glucose, and states over the past several days to weeks she has been checking her glucose and giving herself insulin due to a malfunctioning glucometer. Although patient has elevated troponin I she denies any chest pain. She also reports decreased urine output however denies any dysuria despite abnormal UA. She denies currently any GI bleed however has a history of hemorrhoids and states occasionally she does have some streaking of blood in her stool. CBC/BMP: 08/13/16 0600 08/13/16 0600 Significant Findings Laboratory Tests Test 08/10/16 08/10/16 08/10/16 08/10/16 12:25 13:39 16:00 18:40 Red Blood Count 5.50 MIL/MM3 (4.00-5.30) Hemoglobin 16.3 GM/DL (11.6-15.3) Hematocrit 50.5 % (35.0-46.0) Red Cell Distribution Width 17.4 % (11.6-17.2) Neutrophils (%) (Auto) 77.8 % (16.0-70.0) Monocytes (%) (Auto) 8.1 % (0.0-8.0) Prothrombin Time 12.4 SEC (9.8-11.6) D-Dimer Quantitative (PE/DVT) 1.24 MG/L FEU (0.00-0.50) Urine Glucose (UA) 300 mg/dL (NEG) Urine Leukocyte Esterase MOD (NEG) Urine WBC 8 /hpf (0-5) Urine Bacteria MOD /hpf (NONE) Sodium Level 133 MEQ/L (136-145) Chloride Level 93 MEQ/L (98-107) Blood Urea Nitrogen 55 MG/DL (7-18) Creatinine 2.20 MG/DL (0.50-1.00) Estimat Glomerular Filtration 21 ML/MIN (>89) Rate Random Glucose 402 MG/DL (74-106) Alkaline Phosphatase 271 U/L (45-117) Troponin I 0.66 NG/ML 0.71 NG/ML (0.02-0.05) (0.02-0.05) B-Type Natriuretic Peptide 874 PG/ML (0-100) Total Protein 8.4 GM/DL (6.4-8.2) Albumin 3.1 GM/DL (3.4-5.0) Lactic Acid Level 2.3 mmol/L (0.4-2.0) Ammonia LESS THAN 10 MCMOL/L (11-32) Test 08/11/16 08/11/16 08/12/16 08/13/16 00:48 05:47 04:32 06:00 Total Creatine Kinase 194 U/L (26-192) Troponin I 0.66 NG/ML (0.02-0.05) Red Cell Distribution Width 17.5 % (11.6-17.2) Neutrophils (%) (Auto) 80.1 % (16.0-70.0) Carbon Dioxide Level 32.1 MEQ/L 34.1 MEQ/L 33.3 MEQ/L (21.0-32.0) (21.0-32.0) (21.0-32.0) Blood Urea Nitrogen 45 MG/DL (7-18) 34 MG/DL (7-18) 25 MG/DL (7-18) Creatinine 1.57 MG/DL 1.49 MG/DL 1.36 MG/DL (0.50-1.00) (0.50-1.00) (0.50-1.00) Estimat Glomerular Filtration 32 ML/MIN (>89) 34 ML/MIN (>89) 37 ML/MIN (>89) Rate Random Glucose 52 MG/DL 116 MG/DL (74-106) (74-106) Alkaline Phosphatase 196 U/L (45-117) B-Type Natriuretic Peptide 616 PG/ML (0-100) Albumin 2.5 GM/DL (3.4-5.0) Calcium Level 8.2 MG/DL (8.5-10.1) Imaging Last Impressions Lower Extremity Ultrasound 08/10/16 1326 Signed Impressions: Service Date/Time: Wednesday, August 10, 2016 16:04 - CONCLUSION: No DVT. Sven Pichardo MD Chest X-Ray 08/10/16 1215 Signed Impressions: Service Date/Time: Wednesday, August 10, 2016 12:32 - CONCLUSION: No acute finding is identified. The linear opacity in the left lower lung zone may represent atelectasis. Sven Espinosa MD Renal Ultrasound 08/10/16 0000 Signed Impressions: Service Date/Time: Wednesday, August 10, 2016 16:04 - CONCLUSION: 1. 3.4 cm echogenic area seen of the posterior aspect of the bladder. It is difficult to determine if this represents a bladder mass or an impression on the bladder. This could be further evaluated with Urology consultation. Further imaging could be performed with a CT examination. 2. Benign cystic area seen at the kidneys bilaterally. Sven Pichardo MD Lung Scan-VQ Nuclear Medicine 08/10/16 0000 Signed Impressions: Service Date/Time: Wednesday, August 10, 2016 17:37 - CONCLUSION: No significant V/Q mismatches are seen. This is a low probability for pulmonary embolus. The heterogeneous ventilation portion of study can be seen with COPD. Sven Pichardo MD PE at Discharge GENERAL: NAD SKIN: Warm and dry. HEAD: Normocephalic. EYES: No scleral icterus. No injection or drainage. NECK: Supple, trachea midline. No JVD or lymphadenopathy. CARDIOVASCULAR: Regular rate and rhythm without murmurs, gallops, or rubs. RESPIRATORY: Breath sounds equal bilaterally. No accessory muscle use. GASTROINTESTINAL: Abdomen soft, non-tender, nondistended. MUSCULOSKELETAL: No cyanosis;+Trace edema BLE. BACK: Nontender without obvious deformity. No CVA tenderness. Hospital Course Patient was admitted secondary to uncontrolled diabetes for which she was found to have hypoglycemia and placed on a replacement per protocol. She was subsequently started back on her home regiment of Lantus 35 units at bedtime along with sliding scale insulin. However secondary to low blood glucose reading Lantus was decreased to 25 units at bedtime. On admission she also was found to have evidence of acute or chronic systolic CHF with significant lower extremity swelling, she responded well to diuresis with Bumex 2 mg twice a day and repeat 2-D echo shows ejection fraction of 50%. Secondary to non-ST elevation ND however patient without any symptoms cardiology was consulted, and advised medical management. Patient was also started on IV antibiotics secondary to UTI and lower extremities cellulitis to which she responded well with improvement of symptoms culture were monitored and prior to discharge IV antibiotics were discontinued and patient will be switched to by mouth clindamycin for lower extremities cellulitis. Patient renal function improved. She was continued on her treatment for other chronic medical conditions. PT was consulted. DVT and GI prophylaxis were provided. Prior to discharge, vitals remained stable and patient condition improved. Pt Condition on Discharge: Stable Discharge Disposition: Discharge to SNF Discharge Time: > 30 minutes Discharge Instructions DIET: Follow Instructions for: Diabetic Diet Activities you can perform: Regular-No Restrictions Follow up Referrals: Cardiology PCP Follow-up - 2-3 Days New Medications: Clindamycin (Clindamycin) 300 Mg Cap 600 MG PO Q8H Infection #15 Ref 0 CAP Lactobacillus Acidophilus (Lactinex) 1 Chew 1 TAB CHEW DAILY Nutritional Supplement #30 Ref 0 TAB Hydrocodone-Acetaminophen (Hydrocodone-Acetaminophen) 5-325 mg Tab 1 TAB PO Q4H PRN PAIN SCALE 3 TO 5 #10 TAB Insulin Detemir Inj (Levemir Inj) 1,000 unit/ 10 ML Vial 25 UNITS SQ HS Blood Sugar Management #100 INJECTION Temazepam (Restoril) 15 Mg Cap 15 MG PO HS PRN insomnia #10 CAP Continued Medications: Alendronate (Fosamax) 70 Mg Tab 70 MG PO WEEKLY Saturdays Osteoporosis Treatment #4 Ref 0 TAB Aspirin (Aspirin) 325 Mg Tab 325 MG PO DAILY #30 Ref 0 TAB Bumetanide (Bumex) 2 Mg Tab 2 MG PO BID Ref 0 TAB Citalopram (Celexa) 20 Mg Tab 20 MG PO DAILY Control Depression #30 Ref 0 TAB Fluticasone-Salmeterol Inh (Advair Diskus Inh) 500-50 Mcg/Blist Aer 1 PUFF INH BID Rinse mouth after use. #1 Ref 0 INHALER Insulin Aspart Inj (Novolog Inj) 1,000 Unit/10 Ml Vial 0 SQ DIRECTED Sliding Scale as directed. Blood Sugar Management Ref 0 ML Ipratropium-Albuterol Inh (Combivent Respimat Inh) 20-100 Skilled Nursing/Act Aero 1 PUFF INH QID Asthma Management #1 Ref 0 INHALER Ipratropium-Albuterol Neb (Duoneb) 0.5-2.5 Mg/3 Ml Neb 1 AMPULE NEB QID Breathing Treatment #30 Ref 0 NEBULE Metformin (Metformin) 500 Mg Tab 500 MG PO DAILY With a meal Blood Sugar Management #30 Ref 0 TAB Metoprolol Tartrate (Metoprolol Tartrate) 25 Mg Tab 25 MG PO DAILY #30 Ref 0 TAB Pravastatin (Pravastatin) 80 Mg Tab 80 MG PO HS Cholesterol Management #30 Ref 0 TAB Ropinirole (Requip) 1 Mg Tab 1 MG PO TID #90 Ref 0 TAB Temazepam (Temazepam) 15 Mg Cap 15 MG PO HS PRN INSOMNIA #30 Ref 0 CAP Discontinued Medications: Hydrocodone-Acetaminophen (Lortab) 10-325 Mg Tab 1 TAB PO 2-3 TIMES A DAY PRN PAIN Ref 0 TAB Insulin Glargine Inj (Lantus Inj) 1,000 Unit/10 Ml Vial 35 UNITS SQ HS Blood Sugar Management Ref 0 VIAL Lorazepam (Lorazepam) 0.5 Mg Tab 0.5 MG PO BID PRN ANXIETY AND/OR INSOMNIA Ref 0 TAB Tono Rivero MD Aug 13, 2016 12:10
[2016-08-13 16:00] VITALS: BP 139/60; PULSE 60; RESP 22; TEMP 98.4; O2SAT 93
--- NOTE | 2016-08-13 19:33 | PD.CARD.PN ---
Subjective Subjective Remarks Patient seen earlier today No chest pain, no shortness of breath Objective Medications Current Medications IV Flush (NS Flush) 2 ml UNSCH PRN IVF FLUSH AFTER USING IV ACCESS; Start 08/10 at 12:15; Stop 08/10/16 at 15:59; Status DC Furosemide (Lasix Inj) 80 mg ONCE ONCE IVP Last administered on 08/10/16 12: 38; Start 08/10/16 at 12:15; Stop 08/10/16 at 12:22; Status DC Insulin Human Regular 10 units 10 units ONCE ONCE IVP Last administered on 12:38; Start 08/10/16 at 12:15; Stop 08/10/16 at 12:22; Status DC Sodium Chloride (NS 500 ml Inj) 500 ml @ 500 mls/hr BOLUS ONCE IV Last administered on 08/10/16 12:40; Start 08/10/16 at 12:15; Stop 08/10/16 at 13:14 ; Status DC Acetaminophen/ Hydrocodone Bitart 2 tab 2 tab ONCE ONCE PO Last administered on 08/10/16 13:25; Start 08/10/16 at 13:00; Stop 08/10/16 at 13:01; Status DC Vancomycin HCl 1000 mg/Sodium Chloride 250 ml @ 250 mls/hr ONCE STAT IV Last administered on 08/10/16 15:52; Start 08/10/16 at 13:37; Stop 08/10/16 at 14:36 ; Status DC Piperacillin Sod/ Tazobactam Sod (Zosyn 4.5 Gm Premix) 100 ml @ 200 mls/hr ONCE STAT IV Last administered on 08/10/16 14:38; Start 08/10/16 at 13:37; Stop 08/10/16 at 14:06; Status DC Heparin Sodium (Porcine) (Heparin Inj) 4,000 units ONCE ONCE IV ; Start at 13:45; Stop 08/10/16 at 13:49; Status DC Heparin Sodium (Porcine) (Heparin Inj) 5,000 units UNSCH PRN IV APTT LESS THAN 25; Start 08/10/16 at 19:45; Stop 08/13/16 at 16:25; Status DC Heparin Sodium (Porcine) 2500 units 2,500 units UNSCH PRN IV APTT 25 TO 39; Start 08/10/16 at 19:45; Stop 08/13/16 at 16:25; Status DC Heparin Sodium/ Dextrose (Heparin-D5W Inj) 250 ml @ 0 mls/hr TITRATE IV ; Start 08/10/16 at 13:45; Stop 08/13/16 at 16:25; Status DC Morphine Sulfate 4 mg 4 mg ONCE ONCE IV PUSH Last administered on 08/10/16 14 :33; Start 08/10/16 at 13:45; Stop 08/10/16 at 13:49; Status DC Sodium Chloride (NS 1000 ml Inj) 1,000 ml @ 125 mls/hr Q8H IV Last administered on 08/10/16 14:31; Start 08/10/16 at 13:45; Stop 08/10/16 at 21:44 ; Status DC IV Flush (NS Flush) 2 ml UNSCH PRN FLUSH FLUSH AFTER USING IV ACCESS; Start at 14:15; Stop 08/13/16 at 16:25; Status DC IV Flush (NS Flush) 2 ml BID FLUSH Last administered on 08/13/16 09:23; Start 08/10/16 at 21:00; Stop 08/13/16 at 16:25; Status DC Acetaminophen (Tylenol) 650 mg Q4H PRN PO TEMP > 100.4; Start 08/10/16 at 14:15 ; Stop 08/13/16 at 16:25; Status DC Ondansetron HCl (Zofran Inj) 4 mg Q6H PRN IVP NAUSEA OR VOMITING; Start at 14:15; Stop 08/13/16 at 16:25; Status DC Acetaminophen (Tylenol) 650 mg Q6H PRN PO PAIN SCALE 1 TO 2; Start 08/10/16 at 14:15; Stop 08/13/16 at 16:25; Status DC Acetaminophen/ Hydrocodone Bitart ([place] 5-325 Mg) 1 tab Q4H PRN PO PAIN SCALE 3 TO 5 Last administered on 08/13/16 15:19; Start 08/10/16 at 14:15; Stop 08/13/16 at 16:25; Status DC Naloxone HCl (Narcan Inj) 0.4 mg UNSCH PRN IV SEE LABEL COMMENTS; Start at 14:15; Stop 08/13/16 at 16:25; Status DC Dextrose (D50w (Vial) Inj) 25 ml UNSCH PRN IV PUSH HYPOGLYCEMIA-SEE COMMENTS; Start 08/10/16 at 14:15; Stop 08/13/16 at 16:25; Status DC Glucagon (Glucagon Inj) 1 mg UNSCH PRN OTHER HYPOGLYCEMIA-SEE COMMENTS; Start 08/10/16 at 14:15; Stop 08/13/16 at 16:25; Status DC Insulin Aspart (NovoLOG SUPPLEMENTAL SCALE) 1 ACHS SLIDING SCALE SQ Last administered on 08/13/16 11:55; Start 08/10/16 at 16:00; Stop 08/13/16 at 16:25 ; Status DC Albuterol/ Ipratropium (Duoneb Neb) 1 ampule Q2HR NEB PRN NEB SOB/wheezings; Start 08/10/16 at 14:15; Stop 08/13/16 at 16:25; Status DC Aspirin (Aspirin) 325 mg DAILY PO Last administered on 08/13/16 09:24; Start 08/11/16 at 09:00; Stop 08/13/16 at 16:25; Status DC Citalopram Hydrobromide (CeleXA) 20 mg DAILY PO Last administered on 08/13/16 09:25; Start 08/11/16 at 09:00; Stop 08/13/16 at 16:25; Status DC Insulin Detemir (Levemir Inj) 35 units HS SQ Last administered on 08/10/16 22: 14; Start 08/10/16 at 21:00; Stop 08/11/16 at 08:42; Status DC Metoprolol Tartrate (Lopressor) 25 mg DAILY PO Last administered on 08/13/16 09:24; Start 08/11/16 at 09:00; Stop 08/13/16 at 16:25; Status DC Pravastatin Sodium (Pravachol) 80 mg HS PO Last administered on 08/12/16 21:34 ; Start 08/10/16 at 21:00; Stop 08/13/16 at 16:25; Status DC Ropinirole HCl (Requip) 1 mg TID PO Last administered on 08/13/16 11:53; Start 08/10/16 at 18:00; Stop 08/13/16 at 16:25; Status DC Budesonide/ Formoterol Fumarate 2 puff 2 puff BID INH Last administered on 08/13 09:25; Start 08/10/16 at 21:00; Stop 08/13/16 at 16:25; Status DC Piperacillin Sod/ Tazobactam Sod (Zosyn 2.25 Gm Premix) 50 ml @ 100 mls/hr Q8H IV Last administered on 08/13/16 13:35; Start 08/10/16 at 22:00; Stop at 16:25; Status DC Bumetanide (Bumetanide) 2 mg BID PO ; Start 08/10/16 at 21:00; Stop 08/10/16 at 21:00; Status DC Bumetanide (Bumetanide) 2 mg BID PO Last administered on 08/13/16 09:24; Start 08/11/16 at 07:00; Stop 08/13/16 at 16:25; Status DC Nitroglycerin (Nitrostat Sl) 0.4 mg Q5M PRN SL CHEST PAIN; Start 08/10/16 at 16 :15; Stop 08/13/16 at 16:25; Status DC Heparin Sodium (Porcine) (Heparin Inj) 5,000 units Q12HR SQ Last administered on 08/13/16 09:25; Start 08/10/16 at 21:00; Stop 08/13/16 at 16:25; Status DC Insulin Detemir (Levemir Inj) 25 units HS SQ Last administered on 08/12/16 21: 40; Start 08/11/16 at 21:00; Stop 08/13/16 at 16:25; Status DC Diphenhydramine HCl (Benadryl) 25 mg ONCE ONCE PO Last administered on 23:11; Start 08/12/16 at 22:30; Stop 08/12/16 at 22:32; Status DC Temazepam (Restoril) 15 mg HS PRN PO insomnia Last administered on 08/13/16 02 :15; Start 08/13/16 at 02:00; Stop 08/13/16 at 16:25; Status DC Vital Signs / I&O Vital Signs Date Time Temp Pulse Resp B/P Pulse Ox O2 Delivery O2 Flow Rate FiO2 08/13/16 16:00 98.4 60 22 139/60 93 08/13/16 12:36 Nasal Cannula 4.00 08/13/16 12:00 98.5 61 20 140/66 93 08/13/16 08:00 97.8 82 20 143/63 94 08/13/16 05:05 98.1 86 18 154/64 96 08/13/16 01:04 95 08/13/16 00:35 98.3 68 20 142/58 95 08/12/16 20:50 98.1 69 18 145/66 94 08/12/16 20:00 Nasal Cannula 4.00 08/12/16 20:00 66 I/O 08/12/16 08/12/16 08/12/16 08/13/16 08/13/16 08/13/16 07:00 15:00 23:00 07:00 15:00 23:00 Intake Total 50 ml 840 ml Output Total 350 ml 200 ml Balance -300 ml 640 ml Intake Oral 840 ml IV Total 50 ml Output Urine Total 350 ml 200 ml # Voids 0 2 1 # Bowel Movements 1 0 2 3 Physical Exam GENERAL: NAD, AAO SKIN: Warm and dry. HEAD: Atraumatic. Normocephalic. EYES: Pupils equal and round. No scleral icterus. No injection or drainage. ENT: No nasal bleeding or discharge. Mucous membranes pink and moist. NECK: Trachea midline. No JVD. CARDIOVASCULAR: Regular rate and rhythm. RESPIRATORY: No accessory muscle use. CTA B/L GASTROINTESTINAL: Abdomen soft, non-tender, nondistended. Hepatic and splenic margins not palpable. MUSCULOSKELETAL: 2+ pitting edema bilaterally NEUROLOGICAL: Awake and alert. No obvious cranial nerve deficits. Motor grossly within normal limits. Five out of 5 muscle strength in the arms and legs. Normal speech. PSYCHIATRIC: Appropriate mood and affect; insight and judgment normal. Laboratory Laboratory Tests Test 08/13/16 06:00 White Blood Count 7.2 TH/MM3 Red Blood Count 5.06 MIL/MM3 Hemoglobin 15.0 GM/DL Hematocrit 45.2 % Mean Corpuscular Volume 89.4 FL Mean Corpuscular Hemoglobin 29.6 PG Mean Corpuscular Hemoglobin 33.1 % Concent Red Cell Distribution Width 16.9 % Platelet Count 178 TH/MM3 Mean Platelet Volume 9.1 FL Sodium Level 140 MEQ/L Potassium Level 3.7 MEQ/L Chloride Level 100 MEQ/L Carbon Dioxide Level 33.3 MEQ/L Anion Gap 7 MEQ/L Blood Urea Nitrogen 25 MG/DL Creatinine 1.36 MG/DL Estimat Glomerular Filtration 37 ML/MIN Rate Random Glucose 116 MG/DL Calcium Level 8.7 MG/DL Assessment and Plan Problem List: (1) Elevated troponin I level (2) CKD (chronic kidney disease) stage 3, GFR 30-59 ml/min (3) CHF (congestive heart failure) (4) Pedal edema (5) Urinary tract infection (6) Cellulitis Assessment and Plan 1) CHF, EF 50% 2) Linda and her niece have decided on medical management, agree that she needs to decrease her salt intact overall, which most likely lead to this event 3) Cardiovascularly stable for discharge Problem Qualifiers (1) CHF (congestive heart failure): Qualified Code: I50.9 - Acute on chronic congestive heart failure, unspecified congestive heart failure type (2) Cellulitis: Qualified Code: L03.119 - Cellulitis of lower extremity, unspecified laterality Chris Bliss DO Aug 13, 2016 19:33
== END 2016-08-13 16:24 | DRG 637 ==
LOC: NEPC 11:46 → NEDA 14:03 → HCIS 20:33 → N04B 08-12 14:35 → N04A 08-12 19:40
PROVIDERS: ADMIT Hospitalist; ATTEND Hospitalist
DX: E11.65 Type 2 diabetes mellitus with hyperglycemia (principal); I50.23 Acute on chronic systolic (congestive) heart failure; I21.4 Non-ST elevation (NSTEMI) myocardial infarction; N17.9 Acute kidney failure, unspecified; E87.2 Acidosis; L03.115 Cellulitis of right lower limb; N39.0 Urinary tract infection, site not specified; I25.82 Chronic total occlusion of coronary artery; L03.116 Cellulitis of left lower limb; E11.22 Type 2 diabetes mellitus with diabetic chronic kidney disease; Z99.81 Dependence on supplemental oxygen; G62.9 Polyneuropathy, unspecified; J44.9 Chronic obstructive pulmonary disease, unspecified; Z95.1 Presence of aortocoronary bypass graft; Z79.4 Long term (current) use of insulin; M19.90 Unspecified osteoarthritis, unspecified site; F41.9 Anxiety disorder, unspecified; F32.9 Major depressive disorder, single episode, unspecified; I25.10 Atherosclerotic heart disease of native coronary artery without angina pectoris; M81.0 Age-related osteoporosis without current pathological fracture; G47.30 Sleep apnea, unspecified; F17.210 Nicotine dependence, cigarettes, uncomplicated; Z95.5 Presence of coronary angioplasty implant and graft; K64.9 Unspecified hemorrhoids; I12.9 Hypertensive chronic kidney disease with stage 1 through stage 4 chronic kidney disease, or unspecified chronic kidney disease; N18.3 Chronic kidney disease, stage 3 (moderate); R10.9 Unspecified abdominal pain; Z91.19 Patient's noncompliance with other medical treatment and regimen
CPT/HCPCS: 71010; 76775; 78582; 80048; 80053; 81001; 82140; 82550; 82552; 82948; 83605; 83735; 83880; 84484; 85025; 85027; 85379; 85610; 85730; 87040; 87086; 93005; 93306; 93970; 96361; 96374; 96375; A9540; A9567; J1644; J1815; J1940; J2270; J2543; J3370; J7030; J7040; J7050